=== PATIENT | female | born 2000 | race Caucasian/White ===

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

== ENCOUNTER 2018-05-02 13:29 | Emergency (ER) | payer OTHER ==
[2018-05-02] MEDS ORDERED: KETOROLAC TROMETHAMINE 60 MG/2 ML SDV IM ONE (13:57)
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
--- NOTE | 2018-05-02 14:50 | RADIOLOGY REPORT (SQ) ---
EXAM DESCRIPTION: KNEE RIGHT 3 VIEWS COMPLETED DATE/TIME: 05/02/2018 2:31 pm REASON FOR STUDY: knee pain COMPARISON: 12/04/2016. NUMBER OF VIEWS: Three views. TECHNIQUE: AP, lateral, and sunrise patella radiographic images acquired of the right knee. LIMITATIONS: None. FINDINGS: MINERALIZATION: Normal. BONES: No acute fracture or dislocation. No worrisome bone lesions. JOINT: No effusion. SOFT TISSUES: No soft tissue swelling. No radio-opaque foreign body. OTHER: No other significant finding. IMPRESSION: NEGATIVE STUDY OF THE RIGHT KNEE. NO RADIOGRAPHIC EVIDENCE OF ACUTE INJURY. TECHNICAL DOCUMENTATION: JOB ID: [id number] [employer]- All Rights Reserved Reading location - IP/workstation name: [email or web address]
[2018-05-02 16:15] VITALS: BP 101/57
== END 2018-05-02 16:10 | disposition home or self-care (01) ==
LOC: ER 13:29
DX: S80.01XA Contusion of right knee, initial encounter (principal); S90.01XA Contusion of right ankle, initial encounter; M25.561 Pain in right knee; M54.5 Low back pain; V49.50XA Passenger injured in collision with unspecified motor vehicles in traffic accident, initial encounter; F17.200 Nicotine dependence, unspecified, uncomplicated; J45.909 Unspecified asthma, uncomplicated; Z88.5 Allergy status to narcotic agent; Z88.8 Allergy status to other drugs, medicaments and biological substances; Z88.6 Allergy status to analgesic agent
CPT/HCPCS: 99284; 96372; 73562; J1885

== ENCOUNTER 2018-07-15 22:28 | Emergency (ER) | payer OTHER ==
[2018-07-15 23:30] VITALS: BP 114/64
--- NOTE | 2018-07-16 02:27 | ER Document Report ---
ED General - General Chief Complaint: Flu Symptoms Stated Complaint: NAUSEA, WEAKNESS Time Seen by Provider: 07/16/18 02:16 Notes: Patient is a 18-year-old female presents with complaints of nausea, weakness, fatigue, and some cramping over the lower abdomen. No abnormal discharge. No bleeding. Last menstrual period was in May. She got off control May. She is sexually active. They do not use protection. Patient has not checked a test. She denies any runny nose cough or congestion. She has vomited once. No other complaints at this time. She denies dysuria. TRAVEL OUTSIDE OF THE [place] IN LAST 30 DAYS: No - Related Data Allergies/Adverse Reactions: codeine [Codeine] Allergy (Severe, Verified 10/05/17 10:31) itching capsaicin Allergy (Verified 10/05/17 10:31) hydrocodone Allergy (Verified 10/05/17 10:31) lisdexamfetamine dimesylate [From Vyvanse] Allergy (Verified 10/05/17 10:31) Past Medical History - Social History Smoking Status: Unknown if Ever Smoked Frequency of alcohol use: None Drug Abuse: None Family History: Reviewed & Not Pertinent, Arthritis, Hypertension, Thyroid Disfunction Patient has suicidal ideation: No Patient has homicidal ideation: No Pulmonary Medical History: Reports: Hx Asthma Endocrine Medical History: Denies: Hx Diabetes Mellitus Type 1, Hx Diabetes Mellitus Type 2 Renal/ Medical History: Reports: Hx Ovarian Cysts. Denies: Hx Peritoneal Dialysis Musculoskeletal Medical History: Reports Hx Musculoskeletal Trauma Psychiatric Medical History: Reports: Hx Anxiety, Hx Attention Deficit Hyperactivity Disorder, Hx Bipolar Disorder, Hx Depression, Hx Post Traumatic Stress Disorder Past Surgical History: Reports: Hx Section, Hx Orthopedic Surgery - ganglion cyst removed right - Immunizations Immunizations up to date: Yes Hx Diphtheria, Pertussis, Tetanus Vaccination: Yes Review of Systems - Review of Systems Notes: My Normal Review Basic REVIEW OF SYSTEMS: CONSTITUTIONAL : Denies fever, chills, or sweats. Denies recent illness. EENT: Denies eye, ear, throat, or mouth pain or symptoms. Denies nasal or sinus congestion. RESPIRATORY: Denies cough, cold, or chest congestion. Denies shortness of breath, difficulty breathing, or wheezing. GASTROINTESTINAL: Lower abdominal cramping. vomiting X1. GENITOURINARY: Denies difficulty urinating, painful urination, burning, frequency, or blood in urine. FEMALE GENITOURINARY: Denies vaginal bleeding, abnormal or irregular periods. LMP: May MUSCULOSKELETAL: Denies neck or back pain or joint pain or swelling. SKIN: Denies rash or skin lesions. NEUROLOGICAL: Denies altered mental status or loss of consciousness. Denies headache. Denies weakness or paralysis or loss of use of either side. Denies problems with gait or speech. Denies sensory or motor loss. ALL OTHER SYSTEMS REVIEWED AND NEGATIVE. Physical Exam - Vital signs Vitals: Temp Pulse Resp BP Pulse Ox 98.4 F 90 16 114/64 98 07/15/18 23:29 07/15/18 23:29 07/15/18 23:29 07/15/18 23:29 07/15/18 23:29 - Notes Notes: General Appearance: Well nourished, alert, cooperative, no acute distress, no obvious discomfort. Well-appearing. Vitals: reviewed, See vital signs table. Eyes: PERRL, EOMI, Conjuctiva clear Mouth: No decreasd moisture Throat: Normal-appearing posterior pharynx. No tonsillar hypertrophy or erythema. Lungs: No wheezing, No rales, No rhonci, No accessory muscle use, good air exchange bilaterally. Heart: Normal rate, Regular rythm, No murmur, no rub Abdomen: Normal BS, soft, No rigidity, mild lower abdominal tenderness palpation., No guarding, no rebound, no abdominal masses, no organomegaly Skin: warm, dry, appropriate color, no rash Neuro: speech clear, oriented x 3, normal affect, responds appropriately to q uestions. Course - Re-evaluation Re-evalutation: 07/16/18 05:54 Patient's test was negative. I did call and leave her voicemail inform her that was negative. The exact cause of why the patient has abdominal cramping slight fatigue is not 100% clear. Patient is coming off control and this could be contributing to her cramping pain and that she may be about start her first menstrual post coming off the control. And voicemail informed to return to ER immediately if she has any worsening of her symptoms or feels unwell. I encouraged follow-up closely with her primary care doctor. Dictation of this chart was performed using voice recognition software; therefore, there may be some unintended grammatical errors. - Vital Signs Vital signs: Temp Pulse Resp BP Pulse Ox 98.4 F 90 16 114/64 98 07/15/18 23:29 07/15/18 23:29 07/15/18 23:29 07/15/18 23:29 07/15/18 23:29 Discharge - Discharge Clinical Impression: Nausea, Weakness Condition: Good Disposition: HOME, SELF-CARE Additional Instructions: I will call you with your test results. Please return to the ER if you have worsening pain, abnormal vaginal bleeding, intractable vomiting, or if you feel like you are worsening in any way. please follow up with a physician for revaluation in 2 days. Forms: Special Work Note
[2018-07-16 03:37] LABS: APPEARANCE,URINE SLIGHTLY-CLOUDY; BILIRUBIN,URINE NEGATIVE (NEGATIVE); COLOR,URINE YELLOW; GLUCOSE, URINE NEGATIVE (NEGATIVE); KETONES,URINE NEGATIVE (NEGATIVE); LEUKOCYTE ESTERASE,URINE NEGATIVE (NEGATIVE); NITRITE,URINE NEGATIVE (NEGATIVE); PROTEIN,URINE NEGATIVE (NEGATIVE); URINE SPECIFIC GRAVITY 1.018; UROBILINOGEN,URINE NEGATIVE mg/dL (<2.0)
== END 2018-07-16 04:42 | disposition home or self-care (01) ==
LOC: ER 22:28
DX: R11.2 Nausea with vomiting, unspecified (principal); R53.1 Weakness; R53.83 Other fatigue; R10.30 Lower abdominal pain, unspecified; Z88.5 Allergy status to narcotic agent; Z88.6 Allergy status to analgesic agent; Z88.8 Allergy status to other drugs, medicaments and biological substances; J45.909 Unspecified asthma, uncomplicated
CPT/HCPCS: 81001; 81025; 99283

== ENCOUNTER 2018-07-18 22:05 | Emergency (ER) | payer SELFPAY ==
--- NOTE | 2018-07-19 02:45 | ER Document Report ---
ED General - General Chief Complaint: Abdominal Pain Stated Complaint: POSSIBLE Time Seen by Provider: 07/19/18 02:04 Notes: Patient is a 18-year-old female who presents to the emergency department with a chief complaint of feeling as if she is . She states that she feels her normal symptoms of when she is . She has history of a negative test when she is 37 weeks . She states that her urine pre gnancy tests are never positive. She is sexually active and she had her Nexplanon removed a month and half ago. She does not remember when her last menstrual cycle was, but according to her medical record from her previous visit, her last menstrual cycle was in May. She is inquiring a blood test to confirm . She had a urinalysis done on her previous visit which was normal. TRAVEL OUTSIDE OF THE [place] IN LAST 30 DAYS: No - Related Data Allergies/Adverse Reactions: codeine [Codeine] Allergy (Severe, Verified 10/05/17 10:31) itching capsaicin Allergy (Verified 10/05/17 10:31) hydrocodone Allergy (Verified 10/05/17 10:31) lisdexamfetamine dimesylate [From Vyvanse] Allergy (Verified 10/05/17 10:31) Past Medical History - Social History Smoking Status: Current Every Day Smoker Chew tobacco use (# tins/day): No Frequency of alcohol use: None Drug Abuse: None Family History: Reviewed & Not Pertinent, Arthritis, Hypertension, Thyroid D isfunction Patient has suicidal ideation: No Patient has homicidal ideation: No Pulmonary Medical History: Reports: Hx Asthma Endocrine Medical History: Denies: Hx Diabetes Mellitus Type 1, Hx Diabetes Mellitus Type 2 Renal/ Medical History: Reports: Hx Ovarian Cysts. Denies: Hx Peritoneal Dialysis Musculoskeletal Medical History: Reports Hx Musculoskeletal Trauma Psychiatric Medical History: Reports: Hx Anxiety, Hx Attention Deficit Hyperactivity Disorder, Hx Bipolar Disorder, Hx Depression, Hx Post Traumatic Stress Disorder Past Surgical History: Reports: Hx Section, Hx Orthopedic Surgery - ganglion cyst removed right - Immunizations Immunizations up to date: Yes Hx Diphtheria, Pertussis, Tetanus Vaccination: Yes Review of Systems - Review of Systems Notes: REVIEW OF SYSTEMS: CONSTITUTIONAL : Denies recent illness. Denies recent unintentional weight loss. Denies fever, chills, or sweats. EENT: Denies eye, ear, throat, or mouth pain, discharge, or symptoms. Denies nasal or sinus congestion. CARDIOVASCULAR: Denies chest pain. RESPIRATORY: Denies shortness of breath, cough, congestion, difficulty breathing, or wheezing. GASTROINTESTINAL: See HPI GENITOURINARY: Denies difficulty urinating, burning, blood in urine, urgency or frequency. FEMALE GENITOURINARY: See HPI MUSCULOSKELETAL: Denies neck and back pain. Denies joint pain or swelling. SKIN: Denies rash, itchiness, or lesions HEMATOLOGIC : Denies easy bruising or bleeding. LYMPHATIC: Denies swollen, painful, enlarged glands. NEUROLOGICAL: Denies no numbness or tingling denies weakness. Denies headache. Denies altered mental status. Denies alteration in speech. PSYCHIATRIC: Denies stress, anxiety, alteration in sleep patterns, or depression. All other systems reviewed and negative. Physical Exam - Vital signs Vitals: Temp Pulse BP Pulse Ox 98.1 F 83 106/63 98 07/18/18 22:25 07/18/18 22:25 07/18/18 22:25 07/18/18 22:25 - Notes Notes: PHYSICAL EXAMINATION: GENERAL: Appears well, healthy, well-nourished, no acute distress. HEAD: Normocephalic, atraumatic. EYES: PERRL, conjunctiva normal, all extraocular movements intact, sclera nonicteric ENT: Moist mucous membranes. NECK: Supple, no noticeable swelling, redness, rash. Normal range of motion. LUNGS: Equal breath sounds bilaterally and clear to auscultation. No wheezes rales or rhonchi. CARDIOVASCULAR: S1-S2, regular rate, regular rhythm. Radial pulses 2+, normal. ABDOMEN: Normoactive bowel sounds. Soft, very mildly tender, no guarding, no r ebound tenderness, and no masses palpated. EXTREMITIES: Normal strength and range of motion, no pitting or edema. No cyanosis. NEUROLOGICAL: Moves all extremities upon command. Strength 5/5 in all extremities. PSYCH: Normal mood, normal affect. SKIN: Warm, dry. No rash, lesions, ulcerations noted. Normal skin turgor. Course - Re-evaluation Re-evalutation: The patient's serum and urine hCG are negative. I did not repeat a urinalysis because her urinalysis was normal at her previous visit here to the emergency department. I suspect that may be she is going to start her menstrual cycle within the next few days, and may be this is the reason why she is having her symptoms. I do not suspect she has any life-threatening etiologies at this time. Verbal discharge instructions were given to the patient. They verbalized understanding. They are stable for discharge. Documentation was completed using voice recognition software, therefore there may be some unintended grammatical errors. - Vital Signs Vital signs: Temp Pulse Resp BP Pulse Ox 97.9 F 106 H 19 117/62 98 07/19/18 04:07 07/19/18 04:07 07/19/18 04:07 07/19/18 04:07 07/19/18 04:07 Discharge - Discharge Clinical Impression: Abdominal cramping Condition: Stable Disposition: HOME, SELF-CARE Additional Instructions: You were seen in the emergency department today for abdominal cramping and concern for . At this time there is no explanation as to why you are having abdominal cramping. You may be starting your menstrual cycle in the next few days. Your blood tests show that you are not . If you develop worsening abdominal cramping, develop abdominal cramping, or have any symptoms that are worrisome to you, please return to the emergency department.
[2018-07-19 04:17] VITALS: BP 117/62
== END 2018-07-19 04:18 | disposition home or self-care (01) ==
LOC: ER 22:05
DX: R10.9 Unspecified abdominal pain (principal); Z32.02 Encounter for pregnancy test, result negative; F17.200 Nicotine dependence, unspecified, uncomplicated; J45.909 Unspecified asthma, uncomplicated; Z88.5 Allergy status to narcotic agent; Z88.6 Allergy status to analgesic agent
CPT/HCPCS: 36415; 81025; 84703; 99284

== ENCOUNTER 2018-08-13 22:08 | Emergency (ER) | payer SELFPAY ==
[2018-08-13 22:16] VITALS: BP 99/64
[2018-08-13 23:03] LABS: APPEARANCE,URINE TURBID; BILIRUBIN,URINE NEGATIVE (NEGATIVE); COLOR,URINE YELLOW; GLUCOSE, URINE NEGATIVE (NEGATIVE); KETONES,URINE NEGATIVE (NEGATIVE); LEUKOCYTE ESTERASE,URINE NEGATIVE (NEGATIVE); NITRITE,URINE NEGATIVE (NEGATIVE); PROTEIN,URINE NEGATIVE (NEGATIVE); URINE SPECIFIC GRAVITY 1.019
== END 2018-08-14 | disposition left against medical advice (07) ==
LOC: ER 22:08
DX: Z53.21 Procedure and treatment not carried out due to patient leaving prior to being seen by health care provider (principal)
CPT/HCPCS: 81001; 81025

== ENCOUNTER 2018-08-15 11:39 | Emergency (ER) | payer MEDICAID ==
[2018-08-15] MEDS ORDERED: ONDANSETRON HCL INJ/PF 4 MG/2 ML SDV IV ONE (12:44)
[2018-08-15] MEDS ORDERED: NORMAL SALINE 1000 ML 1,000 ML IV ONE ×2 (12:44→15:23)
[2018-08-15 13:07] LABS: HEMATOCRIT 44.6 % (36.0-47.0); HEMOGLOBIN 15.3 g/dL (12.0-15.5); MEAN CORPUSCULAR HEMOGLOBIN 30.1 pg (27.0-33.4); MEAN CORPUSCULAR HGB CONC 34.3 g/dL (32.0-36.0); MEAN CORPUSCULAR VOLUME 88 fl (80-97); PLATELET COUNT 274 10^3/uL (150-450); RED BLOOD COUNT 5.08 10^6/uL (3.72-5.28); RED CELL DISTRIBUTION WIDTH 12.7 % (11.5-14.0); WHITE BLOOD COUNT 13.7 10^3/uL (4.0-10.5)
[2018-08-15 13:20] LABS: BLOOD UREA NITROGEN 18 mg/dL (7-20); CALCIUM 8.7 mg/dL (8.4-10.2); GLUCOSE 96 mg/dL (75-110)
[2018-08-15 13:21] LABS: ALANINE AMINOTRANSFERASE 131 U/L (9-52); ALBUMIN 4.1 g/dL (3.5-5.0); ALKALINE PHOSPHATASE 233 U/L (38-126); ANION GAP 9 (5-19); ASPARTATE AMINO TRANSFERASE 87 U/L (14-36); BILIRUBIN,DIRECT 0.9 mg/dL (0.0-0.4); BILIRUBIN,TOTAL 1.1 mg/dL (0.2-1.3); CARBON DIOXIDE 27 mmol/L (22-30); CHLORIDE 98 mmol/L (98-107); POTASSIUM 3.9 mmol/L (3.6-5.0); SODIUM 133.5 mmol/L (137-145); TOTAL PROTEIN 6.7 g/dL (6.3-8.2)
[2018-08-15] MEDS ORDERED: KETOROLAC TROMETHAMINE INJ/PF 30 MG/1 ML SDV IV ONE (13:23)
[2018-08-15 13:58] LABS: ABSOLUTE LYMPHOCYTES# (MANUAL) 0.5 10^3/uL (0.5-4.7); ABSOLUTE NEUTROPHILS# (MANUAL) 13.2 10^3/uL (1.7-8.2); BASOPHILS % (MANUAL) 0 % (0-2); EOSINOPHILS % (MANUAL) 0 % (0-6); LYMPHOCYTES % (MANUAL) 4 % (13-45); MONOCYTES % (MANUAL) 0 % (3-13); SEGMENTED NEUTROPHILS % (MAN) 51 % (42-78); TOTAL CELLS COUNTED 100
[2018-08-15 14:01] LABS: PLATELET COMMENT ADEQUATE; POLYCHROMASIA SLIGHT
[2018-08-15 14:10] LABS: TOXIC VACUOLATION PRESENT
[2018-08-15] MEDS ORDERED: DEXTROSE 5%-LACTATED RINGERS 1,000 ML IV ONE (14:17)
[2018-08-15 15:11] LABS: APPEARANCE,URINE SLIGHTLY-CLOUDY; BILIRUBIN,URINE NEGATIVE (NEGATIVE); GLUCOSE, URINE NEGATIVE (NEGATIVE); KETONES,URINE 80 mg/dL (NEGATIVE); LEUKOCYTE ESTERASE,URINE NEGATIVE (NEGATIVE); NITRITE,URINE NEGATIVE (NEGATIVE); PROTEIN,URINE NEGATIVE (NEGATIVE); URINE SPECIFIC GRAVITY 1.025
[2018-08-15 15:14] LABS: COLOR,URINE YELLOW
[2018-08-15 15:18] LABS: URINE AMPHETAMINES SCREEN NEGATIVE; URINE BARBITURATES SCREEN NEGATIVE; URINE BENZODIAZEPINES SCREEN NEGATIVE; URINE COCAINE SCREEN NEGATIVE; URINE MARIJUANA (THC) SCREEN NEGATIVE; URINE METHADONE SCREEN NEGATIVE; URINE PHENCYCLIDINE SCREEN NEGATIVE
--- NOTE | 2018-08-15 16:22 | RADIOLOGY REPORT (SQ) ---
EXAM DESCRIPTION: CHEST SINGLE VIEW COMPLETED DATE/TIME: 08/15/2018 4:09 pm REASON FOR STUDY: Leukocytosis, fever, aches all over COMPARISON: 01/26/2016. EXAM PARAMETERS: NUMBER OF VIEWS: One view. TECHNIQUE: Single frontal radiographic view of the chest acquired. RADIATION DOSE: NA LIMITATIONS: None. FINDINGS: LUNGS AND PLEURA: No opacities, masses or pneumothorax. No pleural effusion. MEDIASTINUM AND HILAR STRUCTURES: No masses. Contour normal. HEART AND VASCULAR STRUCTURES: Heart normal in size. Normal vasculature. BONES: No acute findings. HARDWARE: None in the chest. OTHER: No other significant finding. IMPRESSION: NO ACUTE RADIOGRAPHIC FINDING IN THE CHEST. TECHNICAL DOCUMENTATION: JOB ID: [id number] [employer]- All Rights Reserved Reading location - IP/workstation name: [email or web address]
[2018-08-15] MEDS ORDERED: PROCHLORPERAZINE EDISYLATE INJ 10 MG/2 ML VIAL IV ONE (16:23)
[2018-08-15] MEDS ORDERED: DIPHENHYDRAMINE HCL 50 MG/ML VIAL IV ONE (16:23)
--- NOTE | 2018-08-15 18:29 | EKG REPORT ---
SEVERITY:- ABNORMAL ECG - SINUS TACHYCARDIA NONSPECIFIC T ABNORMALITIES, ANTERIOR LEADS : Confirmed by: Canelo Pereira MD 15-Aug-2018 18:27:44
--- NOTE | 2018-08-15 18:41 | ER Document Report ---
Doctor's Note Notes: 08/15/18 18:40 Patient received in sign out with pending lactic acid. Instructions were patient can be discharged if lactate is normal which it is 1.6. Patient discharged in stable condition.
[2018-08-15 19:06] VITALS: BP 95/48
[2018-08-16 09:38] LABS: HEPATITIS A AB IGM Negative (Negative); HEPATITIS B CORE AB IGM Negative (Negative); HEPATITS B SURFACE ANTIGEN Negative (Negative)
[2018-08-17 11:32] LABS: HEPATITIS C VIRUS ANTIBODY <0.1 s/co ratio (0.0-0.9)
[2018-08-18 09:53] LABS: BAND NEUTROPHILS % (MANUAL) 45 % (3-5)
[2018-08-18 15:47] LABS: PATH REVIEW PATHOLOGIST REVIEWED
--- NOTE | 2018-10-14 09:21 | ER Document Report ---
Entered by MELIZA LUCIO SCRIBE 08/15/18 1254 Acting as scribe for:BRUNO SALES MD ED General - General Chief Complaint: Abdominal Pain Stated Complaint: ABDOMINAL PAIN Time Seen by Provider: 08/15/18 12:35 Mode of Arrival: Ambulatory Information source: Patient Notes: Patient is a 18 year old female presenting to the emergency department complaining of multiple symptoms including nausea, vomiting, abdominal pain, light headedness, body aches and a headache. Patient states these symptoms were onset 3 days ago and she presented to the emergency department but LWBS. She reports being unable to hold down any foods, further stating she can only keep down cold water. She also states she is concerned for and would like to test for this. She denies cough or vaginal discharge. Patient reports not being able to take Tylenol since being told she had liver problems in September 2017. According to [facility] records, patient had elevated liver enzymes on October 05, 2017. Patient's enzymes were not elevated before then and her enzymes has not been checked since. Patient's LMP was July 03, 2018. She states she is sexually active but is no longer on control further stating she had her Nexplanon removed at the beginning of June 2018. TRAVEL OUTSIDE OF THE [place] IN LAST 30 DAYS: No - Related Data Allergies/Adverse Reactions: codeine [Codeine] Allergy (Severe, Verified 08/15/18 11:40) itching capsaicin Allergy (Verified 08/15/18 11:40) hydrocodone Allergy (Verified 08/15/18 11:40) lisdexamfetamine dimesylate [From Vyvanse] Allergy (Verified 08/15/18 11:40) Past Medical History - General Information source: Patient - Social History Smoking Status: Never Smoker Cigarette use (# per day): No Chew tobacco use (# tins/day): No Smoking Education Provided: No Frequency of alcohol use: None Family History: Reviewed & Not Pertinent, Arthritis, Hypertension, Thyroid Disfunction Pulmonary Medical History: Reports: Hx Asthma Renal/ Medical History: Reports: Hx Ovarian Cysts Musculoskeletal Medical History: Reports Hx Musculoskeletal Trauma Psychiatric Medical History: Reports: Hx Anxiety, Hx Attention Deficit Hyperactivity Disorder, Hx Bipolar Disorder, Hx Depression, Hx Post Traumatic Stress Disorder Past Surgical History: Reports: Hx Section, Hx Orthopedic Surgery - ganglion cyst removed right - Immunizations Immunizations up to date: Yes Hx Diphtheria, Pertussis, Tetanus Vaccination: Yes Review of Systems - Review of Systems Constitutional: No symptoms reported EENT: No symptoms reported Cardiovascular: See HPI, Lightheaded Respiratory: No symptoms reported Gastrointestinal: See HPI, Abdominal pain, Nausea, Vomiting Genitourinary: No symptoms reported Female Genitourinary: No symptoms reported Musculoskeletal: See HPI Skin: No symptoms reported Hematologic/Lymphatic: No symptoms reported Neurological/Psychological: No symptoms reported -: Yes All other systems reviewed and negative Physical Exam - Vital signs Vitals: Temp Pulse Resp BP Pulse Ox 100.2 F 174 H 16 112/50 L 99 08/15/18 12:17 08/15/18 12:17 08/15/18 12:17 08/15/18 12:17 08/15/18 12:17 - Notes Notes: GENERAL: Alert, mildly diaphoretic, interacts well. No acute distress. HEAD: Normocephalic, atraumatic. Scalp muscles are little tender to palpate. EYES: Pupils equal, round, and reactive to light. Extraocular movements intact. ENT: Oral mucosa moist, tongue midline. NECK: Full range of motion. Supple. Trachea midline. Posterior cervical muscles are tender to palpate. LUNGS: Clear to auscultation bilaterally, no wheezes, rales, or rhonchi. No respiratory distress. HEART: Tachycardic. No murmurs, gallops, or rubs. ABDOMEN: Soft, non-tender. Non-distended. Bowel sounds present in all 4 quadrants. EXTREMITIES: Moves all 4 extremities spontaneously. NEUROLOGICAL: Alert and oriented x3. Normal speech. PSYCH: Normal affect, normal mood. SKIN: Warm, mildly diaphoretic, normal turgor. No rashes or lesions noted. Course - Re-evaluation Re-evalutation: 08/15/18 16:24 Patient is feeling some better, she has urinated several times. She complains of headache all over. On exam she has tenderness to scalp and posterior cervical muscle palpation. There is no increase in headache or stiffness on chin to chest flexion. The abdomen remains soft and nontender. The WBC is 13,700 with 51 segs and 45 bands. She does not look toxic, her history and physical are all consistent with a viral syndrome. The chest x-ray is unremarkable, the urine is a little concentrated with 80 ketones after getting IV fluids. 08/15/18 17:26 The patient was sleeping soundly after getting the Benadryl and Compazine. She is awakened for reexam and states that her headache is much better. She does have IV fluids infusing. After the Benadryl and Compazine, her blood pressure has dropped down into the upper 70s systolic, while I am seeing her the machine recycled and her blood pressure was up into the mid 80s and climbing. I will order a lactic acid to help ensure that this is not a bacterial sepsis type problem. We will plan to discharge her home after this current liter of fluid infuses in the lactic acid result comes back. She is encouraged to continue to drink plenty fluids, get plenty of sleep and rest, take ibuprofen for pain as needed. She should follow-up with a primary care provider this week to review the results of her hepatitis profile testing. - Vital Signs Vital signs: Temp Pulse Resp BP Pulse Ox 98.6 F 174 H 14 95/48 L 100 08/15/18 19:08 08/15/18 12:17 08/15/18 19:01 08/15/18 19:01 08/15/18 19:01 - Laboratory Result Diagrams: 08/15/18 12:35 08/15/18 12:35 Laboratory results interpreted by me: 08/15/18 08/15/18 08/15/18 12:35 12:35 14:25 WBC 13.7 H Band Neutrophils % 45 H Lymphocytes % (Manual) 4 L Monocytes % (Manual) 0 L Abs Neuts (Manual) 13.2 H Abs Monocytes (Manual) 0.0 L Sodium 133.5 L Direct Bilirubin 0.9 H AST 87 H ALT 131 H Alkaline Phosphatase 233 H Urine Ketones 80 H Urine Urobilinogen 4.0 H - Diagnostic Test Radiology reviewed: Reports reviewed - Chest x-ray is unremarkable - Transfer of Care Care transferred to following provider: Dr. Montoya Notes: 08/15/18 17:41 Patient remains on monitor for the time being. She is receiving another full liter of IV fluids at this time. A serum lactic acid was ordered and will be reviewed by Dr. Montoya. At this time the plan is to discharge the patient when the additional IV fluids are in as long as the lactic acid does not come back very elevated. Discharge - Discharge Clinical Impression: Viral syndrome, Elevated liver enzymes, Tachycardia Headache Qualifiers: Headache type: unspecified Headache chronicity pattern: unspecified pattern Intractability: not intractable Qualified Code(s): R51 - Headache Hypotension Qualifiers: Hypotension type: unspecified hypotension type Qualified Code(s): I95.9 - Hypotension, unspecified Condition: Stable Disposition: HOME, SELF-CARE Additional Instructions: :Viral Syndrome The physician has diagnosed a viral infection. Viruses not only cause "colds," but can cause many different symptoms including generalized aching, fever, headache, cough, diarrhea, nausea, vomiting, and fatigue. The treatment, for the most part, is simply relief of symptoms. This means that antibiotics are usually not given. Rest, fluids, pain medications and, occasionally, medication for the specific symptoms that are most bothersome will be prescribed. Use good handwashing to avoid passing the virus to others. Shared toys should be cleaned with disinfectant. Clean the toilets, sinks, and counter surfaces in bathrooms. Launder clothing in hot water. Contact the physician if you develop any new or unusual symptoms such as severe headache, stiff neck, high fever, chest pain, productive cough, or shortness of breath. You should be rechecked if you don't see marked improvement within seven to 10 days. You most likely have a viral syndrome causing her symptoms. Your lab work suggests that you are little dehydrated. Your liver enzymes continue to be elevated slightly, not nearly as bad as they were in September of last year. A hepatitis panel was sent out and should be back sometime next week. For now you should drink plenty of fluids and get plenty of rest and sleep. Take ibuprofen for aches, pains, and headaches. Follow-up with a primary care provider next week for recheck and to check on your hepatitis profile panel. RETURN TO THE EMERGENCY ROOM IF ANY NEW OR WORSENING SYMPTOMS. Scribe Attestation: 08/15/18 14:23 I personally performed the services described in the documentation, reviewed and edited the documentation which was dictated to the scribe in my presence, and it accurately records my words and actions. I personally performed the services described in the documentation, reviewed and edited the documentation which was dictated to the scribe in my presence, and it accurately records my words and actions.
== END 2018-08-15 19:08 | disposition home or self-care (01) ==
LOC: ER 11:39
DX: B34.9 Viral infection, unspecified (principal); R74.8 Abnormal levels of other serum enzymes; R00.0 Tachycardia, unspecified; R51 Headache; I95.9 Hypotension, unspecified; R10.9 Unspecified abdominal pain; R11.2 Nausea with vomiting, unspecified; R42 Dizziness and giddiness; M79.10 Myalgia, unspecified site; J45.909 Unspecified asthma, uncomplicated
CPT/HCPCS: 93005; 99284; 36415; 87040; 84703; 85025; 80053; 81001; 80307; 83605; 80074; 71045; 93010; J1200; J1885; J0780; J2405; J7030

== ENCOUNTER 2018-10-02 22:54 | Emergency (ER) | payer OTHER ==
[2018-10-02 23:12] VITALS: BP 104/60
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
[2018-10-03] MEDS ORDERED: HYDROCODONE/ACETAMINOPHEN 5-325 MG TABLET PO ONE (01:05)
== END 2018-10-03 01:17 | disposition home or self-care (01) ==
LOC: ER 22:54
DX: O26.91 Pregnancy related conditions, unspecified, first trimester (principal); G89.29 Other chronic pain; M54.5 Low back pain; M25.552 Pain in left hip; M25.551 Pain in right hip; Z3A.01 Less than 8 weeks gestation of pregnancy; Z88.6 Allergy status to analgesic agent
CPT/HCPCS: 99283

== ENCOUNTER 2018-12-04 22:34 | Emergency (ER) | payer MEDICAID ==
[2018-12-05 00:07] VITALS: BP 101/53
== END 2018-12-05 01:28 | disposition left against medical advice (07) ==
LOC: ER 22:34
DX: Z53.21 Procedure and treatment not carried out due to patient leaving prior to being seen by health care provider (principal); R10.9 Unspecified abdominal pain; R53.1 Weakness

== ENCOUNTER 2018-12-15 00:04 | Emergency (ER) | payer SELFPAY ==
[2018-12-15 00:11] VITALS: BP 111/61
== END 2018-12-15 01:12 | disposition left against medical advice (07) ==
LOC: ER 00:04
DX: Z53.21 Procedure and treatment not carried out due to patient leaving prior to being seen by health care provider (principal)

== ENCOUNTER 2019-01-04 16:40 | Emergency (ER) | payer MEDICAID ==
[2019-01-04] MEDS ORDERED: NORMAL SALINE 1000 ML 1,000 ML IV ONE (17:00)
[2019-01-04] MEDS ORDERED: METOCLOPRAMIDE HCL INJ/PF 10 MG/2 ML SDV IV ONE (17:00)
--- NOTE | 2019-01-04 17:00 | ER Document Report ---
ED Medical Screen (RME) - General Chief Complaint: Abdominal Pain Stated Complaint: WEAKNESS Time Seen by Provider: 01/04/19 16:56 TRAVEL OUTSIDE OF THE [place] IN LAST 30 DAYS: No - HPI Notes: 01/04/19 16:58 Patient is a 19-year-old female is approximately 18 weeks who presents complaining of 'mild' left upper quadrant discomfort with associated nausea over the past couple days. Patient states that she has felt somewhat weak, dizzy, and dehydrated. Discomfort does not radiate. She is still able to eat and drink without difficulties otherwise. She is urinating normally and having normal bowel movements. She has not had any vaginal discharge, odor, or bleeding. Patient states that she had this with a previous and it was attributed to her dehydration. No other concerns or complaints. Denies MILLER, fever, neck pain, URI, CP, SOB, dysuria, back pain, or rash. I have treated and performed a rapid initial assessment of this patient. A comprehensive ED assessment and evaluation of the patient, analysis of test results and completion of medical decision making process will be conducted by additional ED providers. PHYSICAL EXAMINATION: GENERAL: Well-appearing, well-nourished and in no acute distress. A&Ox4. Answers questions appropriately. LUNGS: Breath sounds clear to auscultation bilaterally and equal. No wheezes rales or rhonchi. HEART: Regular rate and rhythm without murmurs, rubs, gallops. ABDOMEN: Soft, gravid abdomen. No guarding, no rebound. Normal bowel sounds present. No CVA tenderness bilaterally. + mild LUQ tenderness (cannot elicit thorough abd exam w/o bed, however). - Related Data Allergies/Adverse Reactions: codeine [Codeine] Allergy (Severe, Verified 01/04/19 16:48) itching capsaicin Allergy (Verified 01/04/19 16:48) hydrocodone Allergy (Verified 01/04/19 16:48) lisdexamfetamine dimesylate [From Vyvanse] Allergy (Verified 01/04/19 16:48) Past Medical History Pulmonary Medical History: Reports: Hx Asthma Endocrine Medical History: Denies: Hx Diabetes Mellitus Type 1, Hx Diabetes Mellitus Type 2 Renal/ Medical History: Reports: Hx Ovarian Cysts. Denies: Hx Peritoneal Dialysis Musculoskeltal Medical History: Reports Hx Musculoskeletal Trauma Psychiatric Medical History: Reports: Hx Anxiety, Hx Attention Deficit Hyperactivity Disorder, Hx Bipolar Disorder, Hx Depression, Hx Post Traumatic Stress Disorder Past Surgical History: Reports: Hx Section, Hx Orthopedic Surgery - ganglion cyst removed right - Immunizations Immunizations up to date: Yes Hx Diphtheria, Pertussis, Tetanus Vaccination: Yes Physical Exam - Vital signs Vitals: Temp Pulse Resp BP Pulse Ox 98.4 F 109 H 18 130/95 H 97 01/04/19 16:52 01/04/19 16:52 01/04/19 16:52 01/04/19 16:52 01/04/19 16:52 Course - Vital Signs Vital signs: Temp Pulse Resp BP Pulse Ox 98.4 F 109 H 18 130/95 H 97 01/04/19 16:52 01/04/19 16:52 01/04/19 16:52 01/04/19 16:52 01/04/19 16:52
[2019-01-04 18:06] LABS: ABSOLUTE EOSINOPHILS # (AUTO) 0.3 10^3/uL (0.0-0.6); ABSOLUTE LYMPHOCYTES (AUTO) 1.6 10^3/uL (0.5-4.7); ABSOLUTE MONOCYTES (AUTO) 0.7 10^3/uL (0.1-1.4); ABSOLUTE NEUT (AUTO) 9.9 10^3/uL (1.7-8.2); BASOPHILS % (AUTO) 0.4 % (0-2); HEMATOCRIT 37.1 % (36.0-47.0); HEMOGLOBIN 12.7 g/dL (12.0-15.5); LYMPHOCYTES % (AUTO) 12.5 % (13-45); MEAN CORPUSCULAR HEMOGLOBIN 30.6 pg (27.0-33.4); MEAN CORPUSCULAR HGB CONC 34.1 g/dL (32.0-36.0); MEAN CORPUSCULAR VOLUME 90 fl (80-97); MONOCYTES % (AUTO) 5.6 % (3-13); PLATELET COUNT 288 10^3/uL (150-450); RED BLOOD COUNT 4.14 10^6/uL (3.72-5.28); SEGMENTED NEUTROPHILS % (AUTO) 79.5 % (42-78); TOTAL CELLS COUNTED % (AUTO) 100 %; WHITE BLOOD COUNT 12.5 10^3/uL (4.0-10.5)
[2019-01-04 18:24] LABS: ALANINE AMINOTRANSFERASE 29 U/L (9-52); ALKALINE PHOSPHATASE 104 U/L (38-126); ANION GAP 6 (5-19); ASPARTATE AMINO TRANSFERASE 20 U/L (14-36); BILIRUBIN,DIRECT 0.2 mg/dL (0.0-0.4); BILIRUBIN,TOTAL 0.2 mg/dL (0.2-1.3); BLOOD UREA NITROGEN 9 mg/dL (7-20); CALCIUM 9.6 mg/dL (8.4-10.2); CARBON DIOXIDE 27 mmol/L (22-30); CHLORIDE 104 mmol/L (98-107); GLUCOSE 85 mg/dL (75-110); LIPASE 36.4 U/L (23-300); POTASSIUM 4.4 mmol/L (3.6-5.0); SODIUM 137.4 mmol/L (137-145)
[2019-01-04 19:11] LABS: AMORPHOUS SEDIMENT,URINE TRACE /HPF; APPEARANCE,URINE CLOUDY; BILIRUBIN,URINE NEGATIVE (NEGATIVE); COLOR,URINE YELLOW; GLUCOSE, URINE NEGATIVE (NEGATIVE); KETONES,URINE NEGATIVE (NEGATIVE); LEUKOCYTE ESTERASE,URINE MODERATE (NEGATIVE); NITRITE,URINE NEGATIVE (NEGATIVE); PROTEIN,URINE NEGATIVE (NEGATIVE); UROBILINOGEN,URINE NEGATIVE mg/dL (<2.0)
--- NOTE | 2019-01-04 23:18 | ER Document Report ---
ED General - General Chief Complaint: Abdominal Pain Stated Complaint: WEAKNESS Time Seen by Provider: 01/04/19 16:56 Notes: Patient is a 19-year-old female G2, P1 is approximately 18 weeks who presents complaining of intermittent generalized abdominal discomfort with associated nausea over the past couple days. Pain is a cramping, aching, intermittent discomfort. Nothing improves or worsens her discomfort. Patient states that she has felt somewhat weak, dizzy, and dehydrated. Discomfort does not radiate. She is still able to eat and drink without difficulties otherwise. She is urinating normally and having normal bowel movements. She has not had any vaginal discharge, odor, or bleeding. Patient states that she had this with a previous and it was attributed to her dehydration. No other concerns or complaints. Denies MILLER, fever, neck pain, URI, CP, SOB, dysuria, back pain, or rash. TRAVEL OUTSIDE OF THE [place] IN LAST 30 DAYS: No - Related Data Allergies/Adverse Reactions: codeine [Codeine] Allergy (Severe, Verified 01/04/19 16:48) itching capsaicin Allergy (Verified 01/04/19 16:48) hydrocodone Allergy (Verified 01/04/19 16:48) lisdexamfetamine dimesylate [From Vyvanse] Allergy (Verified 01/04/19 16:48) Past Medical History - General Information source: Patient - Social History Smoking Status: Never Smoker Chew tobacco use (# tins/day): No Frequency of alcohol use: None Drug Abuse: None Lives with: Spouse/Significant other Family History: Reviewed & Not Pertinent, Arthritis, Hypertension, Thyroid Disfunction Patient has suicidal ideation: No Patient has homicidal ideation: No Pulmonary Medical History: Reports: Hx Asthma Endocrine Medical History: Denies: Hx Diabetes Mellitus Type 1, Hx Diabetes Mellitus Type 2 Renal/ Medical History: Reports: Hx Ovarian Cysts. Denies: Hx Peritoneal Dialysis Musculoskeletal Medical History: Reports Hx Musculoskeletal Trauma Psychiatric Medical History: Reports: Hx Anxiety, Hx Attention Deficit Hyperactivity Disorder, Hx Bipolar Disorder, Hx Depression, Hx Post Traumatic Stress Disorder Past Surgical History: Reports: Hx Section, Hx Orthopedic Surgery - ganglion cyst removed right - Immunizations Immunizations up to date: Yes Hx Diphtheria, Pertussis, Tetanus Vaccination: Yes Review of Systems - Review of Systems Notes: Constitutional: Negative for fever. HENT: Negative for sore throat. Eyes: Negative for visual changes. Cardiovascular: Negative for chest pain. Respiratory: Negative for shortness of breath. Gastrointestinal: Positive abdominal pain, nausea Genitourinary: Negative for dysuria. Musculoskeletal: Negative for back pain. Skin: Negative for rash. Neurological: Negative for headaches, weakness or numbness. 10 point ROS negative except as marked above and in HPI. Physical Exam - Vital signs Vitals: Temp Pulse Resp BP Pulse Ox 98.4 F 109 H 18 130/95 H 97 01/04/19 16:52 01/04/19 16:52 01/04/19 16:52 01/04/19 16:52 01/04/19 16:52 Interpretation: Tachycardic - Resolved at the time of my assessment with a heart rate of 91 Notes: PHYSICAL EXAMINATION: GENERAL: Well-appearing, well-nourished and in no acute distress. HEAD: Atraumatic, normocephalic. EYES: Pupils equal round and reactive to light, extraocular movements intact, sclera anicteric, conjunctiva are normal. ENT: nares patent, oropharynx clear without exudates. Moist mucous membranes. NECK: Normal range of motion, supple without lymphadenopathy LUNGS: Breath sounds clear to auscultation bilaterally and equal. No wheezes rales or rhonchi. HEART: Regular rate and rhythm without murmurs ABDOMEN: Soft, gravid uterus, nontender, normoactive bowel sounds. No guarding, no rebound. No masses appreciated. EXTREMITIES: Normal range of motion, no pitting or edema. No cyanosis. NEUROLOGICAL: No focal neurological deficits. Moves all extremities spontaneou sly and on command. PSYCH: Normal mood, normal affect. SKIN: Warm, Dry, normal turgor, no rashes or lesions noted. Course - Re-evaluation Re-evalutation: 01/04/19 23:18 Patient is currently and presenting with lower abdominal pain. No vaginal bleeding or discharge. Bedside ultrasound shows a viable intrauterine , appropriate cardiac activity and active movement. Patient denies any dysuria and urinalysis is not consistent with an acute urinary tract infection. The patient does not have any focal right lower quadrant tenderness, rebound or guarding to suggest acute appendicitis. No right upper quadrant tenderness to suggest cholestasis of or an acute cholecystitis. Patient has tolerated oral intake here in the emergency department without difficulty. Vitals are within normal limits. At this time will discharge with return precautions and follow-up recommendations. Verbal discharge instructions given a the bedside and opportunity for questions given. Medication warnings reviewed. Patient is in agreement with this plan and has verbalized understanding of return precautions and the need for primary care follow-up in the next 24-72 hours. - Vital Signs Vital signs: Temp Pulse Resp BP Pulse Ox 98.4 F 109 H 18 130/95 H 97 01/04/19 16:52 01/04/19 16:52 01/04/19 16:52 01/04/19 16:52 01/04/19 16:52 - Laboratory Result Diagrams: 01/04/19 17:45 01/04/19 17:45 Laboratory results interpreted by me: 01/04/19 01/04/19 01/04/19 17:45 17:45 18:00 WBC 12.5 H Seg Neutrophils % 79.5 H Lymphocytes % 12.5 L Absolute Neutrophils 9.9 H Creatinine 0.43 L Ur Leukocyte Esterase MODERATE H Discharge - Discharge Clinical Impression: with generalized abdominal pain, antepartum, Dizziness Condition: Good Disposition: HOME, SELF-CARE Additional Instructions: You were seen for abdominal pain during . Your ultrasound and labs are normal today. The exact cause your pain is uncertain but is likely related to your developing baby. Please follow-up with your VENDING ATTENDANT in the next 24-48 hours. Return to the emergency department immediately if you have worsening of your pain, have persistent vomiting, develop a fever of greater than 100.4F, begin to have vaginal bleeding, or any other symptoms that are worrisome to you.
[2019-01-04 23:39] VITALS: BP 116/66
== END 2019-01-04 23:39 | disposition home or self-care (01) ==
LOC: ER 16:40
DX: O26.892 Other specified pregnancy related conditions, second trimester (principal); R10.84 Generalized abdominal pain; R42 Dizziness and giddiness; R10.9 Unspecified abdominal pain; R53.1 Weakness; O99.512 Diseases of the respiratory system complicating pregnancy, second trimester; J45.909 Unspecified asthma, uncomplicated; Z3A.18 18 weeks gestation of pregnancy
CPT/HCPCS: 99284; 36415; 83690; 85025; 80053; 81001; J2765; J7030

== ENCOUNTER 2019-01-26 21:03 | Outpatient (CLI) | payer MEDICAID ==
[2019-01-26 21:39] LABS: APPEARANCE,URINE SLIGHTLY-CLOUDY; BILIRUBIN,URINE NEGATIVE (NEGATIVE); COLOR,URINE YELLOW; GLUCOSE, URINE NEGATIVE (NEGATIVE); KETONES,URINE TRACE mg/dL (NEGATIVE); LEUKOCYTE ESTERASE,URINE MODERATE (NEGATIVE); NITRITE,URINE NEGATIVE (NEGATIVE); PROTEIN,URINE NEGATIVE (NEGATIVE); URINE SPECIFIC GRAVITY 1.019
[2019-01-26 21:53] LABS: URINE AMPHETAMINES SCREEN NEGATIVE; URINE BARBITURATES SCREEN NEGATIVE; URINE BENZODIAZEPINES SCREEN NEGATIVE; URINE COCAINE SCREEN NEGATIVE; URINE MARIJUANA (THC) SCREEN NEGATIVE; URINE METHADONE SCREEN NEGATIVE; URINE PHENCYCLIDINE SCREEN NEGATIVE
[2019-01-26] MEDS ORDERED: HYDROXYZINE PAMOATE 50 MG CAPSULE ONE (22:00)
[2019-01-26] MEDS ORDERED: HYDROXYZINE PAMOATE 50 MG CAPSULE PO ONE (22:30)
--- NOTE | 2019-01-26 22:43 | RADIOLOGY REPORT (SQ) ---
EXAM DESCRIPTION: US LIMITED COMPLETED DATE/TME: 01/26/2019 00:00 CLINICAL HISTORY: 19 years, Female, cervical length, maximal vertical pocket COMPARISON: None. TECHNIQUE: Axial 2-D grayscale images of the pelvis were performed. Doppler was utilized. LIMITATIONS: None. FINDINGS: Single intrauterine is identified. Measurements are as follows: Head circumference: 19.11 cm Biparietal diameter: 4.91 cm Abdominal circumference: 16.32 cm Femoral length: 3.62 cm heart rate: 152 bpm Estimated weight is 421 g (15 ounces) with an estimated gestational age of 21 weeks and two days. Largest vertical pocket of fluid is 5.18 cm Cervical length is 3.7 cm. Cervix appears closed. Placenta is posterior in location. IMPRESSION: Single viable intrauterine , as above described. Largest vertical pocket is 5.18 cm with a cervical length of 3.7 cm. copyright 2010 [employer]- All Rights Reserved
== END 2019-01-26 22:59 | disposition home or self-care (01) ==
LOC: LC 21:03
PROVIDERS: ATTEND Obstetrics & Gynecology
DX: O47.02 False labor before 37 completed weeks of gestation, second trimester (principal); Z3A.21 21 weeks gestation of pregnancy
CPT/HCPCS: 81001; 80307; 76815; J3490

== ENCOUNTER 2019-02-03 16:21 | Outpatient (CLI) | payer MEDICAID ==
[2019-02-03 17:29] LABS: APPEARANCE,URINE CLOUDY; BILIRUBIN,URINE NEGATIVE (NEGATIVE); COLOR,URINE YELLOW; GLUCOSE, URINE NEGATIVE (NEGATIVE); KETONES,URINE NEGATIVE (NEGATIVE); LEUKOCYTE ESTERASE,URINE TRACE (NEGATIVE); NITRITE,URINE NEGATIVE (NEGATIVE); PROTEIN,URINE NEGATIVE (NEGATIVE); URINE SPECIFIC GRAVITY 1.018; UROBILINOGEN,URINE NEGATIVE mg/dL (<2.0)
[2019-02-03 17:44] LABS: URINE AMPHETAMINES SCREEN NEGATIVE; URINE BARBITURATES SCREEN NEGATIVE; URINE BENZODIAZEPINES SCREEN NEGATIVE; URINE COCAINE SCREEN NEGATIVE; URINE MARIJUANA (THC) SCREEN NEGATIVE; URINE METHADONE SCREEN NEGATIVE; URINE PHENCYCLIDINE SCREEN NEGATIVE
== END 2019-02-03 17:40 | disposition home or self-care (01) ==
LOC: LC 16:21
PROVIDERS: ATTEND Obstetrics & Gynecology
PROC: 4A1HXCZ Monitoring of Products of Conception, Cardiac Rate, External Approach (ICD-10-PCS; principal; 2019-02-03)
DX: O26.892 Other specified pregnancy related conditions, second trimester (principal); R10.2 Pelvic and perineal pain; Z3A.22 22 weeks gestation of pregnancy
CPT/HCPCS: 80307; 81001

== ENCOUNTER 2019-02-06 20:31 | Emergency (ER) | payer MEDICAID ==
[2019-02-06 20:54] VITALS: BP 107/57
--- NOTE | 2019-02-06 22:08 | RADIOLOGY REPORT (SQ) ---
EXAM DESCRIPTION: XR ANKLE 3 OR MORE VIEWS COMPLETED DATE/TME: 02/06/2019 21:32 CLINICAL HISTORY: 19 years, Female, pain COMPARISON: None. NUMBER OF VIEWS: 3 TECHNIQUE: 3 view right ankle LIMITATIONS: None. FINDINGS: Negative for fracture or dislocation. Ankle mortise is intact. Soft tissues are unremarkable IMPRESSION: Negative exam copyright 2010 [employer]- All Rights Reserved
[2019-02-06] MEDS ORDERED: ACETAMINOPHEN 325 MG TABLET PO ONE (23:06)
--- NOTE | 2019-02-06 23:07 | ER Document Report ---
ED General - General Chief Complaint: Leg Pain Stated Complaint: RIGHT LEG AND ANKLE INJURY Time Seen by Provider: 02/06/19 22:52 Primary Care Provider: NAHOMI CAMARGO DO [Primary Care Provider] - Follow up in 3-5 days TRAVEL OUTSIDE OF THE [place] IN LAST 30 DAYS: No - HPI Notes: 19-year-old female to the emergency department with complaints of right ankle pain after she fell this evening. States she was going down a curb when her child "decided to play leapfrog". She states that to prevent him from falling she caught him and twisted her ankle. She states that her ankle went underneath her. She is 22 weeks . She denies hitting her stomach. She states that she is felt the baby move since the incident. She denies any pelvic cramping or abdominal pain. Denies any vaginal bleeding since the incident. States the ankle is painful to move and that it is even more painful to bear weight on. She has not taken anything for the pain since the incident. - Related Data Allergies/Adverse Reactions: codeine [Codeine] Allergy (Severe, Verified 02/03/19 17:50) itching capsaicin Allergy (Verified 02/03/19 17:50) hydrocodone Allergy (Verified 02/03/19 17:50) lisdexamfetamine dimesylate [From Vyvanse] Allergy (Verified 02/03/19 17:50) Past Medical History - General Information source: Patient - Social History Smoking Status: Never Smoker Frequency of alcohol use: None Drug Abuse: None Family History: Reviewed & Not Pertinent, Arthritis, Hypertension, Thyroid Disfunction Pulmonary Medical History: Reports: Hx Asthma Endocrine Medical History: Denies: Hx Diabetes Mellitus Type 1, Hx Diabetes Mellitus Type 2 Renal/ Medical History: Reports: Hx Ovarian Cysts. Denies: Hx Peritoneal Dialysis Musculoskeletal Medical History: Reports Hx Musculoskeletal Trauma Psychiatric Medical History: Reports: Hx Anxiety, Hx Attention Deficit Hyperactivity Disorder, Hx Bipolar Disorder, Hx Depression, Hx Post Traumatic Stress Disorder Past Surgical History: Reports: Hx Section, Hx Orthopedic Surgery - ganglion cyst removed right - Immunizations Immunizations up to date: Yes Hx Diphtheria, Pertussis, Tetanus Vaccination: Yes Review of Systems - Review of Systems Constitutional: denies: Chills, Fever EENT: No symptoms reported Cardiovascular: denies: Chest pain, Palpitations, Dyspnea, Syncope, Dizziness, Lightheaded Respiratory: denies: Cough, Short of breath Gastrointestinal: denies: Abdominal pain, Diarrhea, Nausea Genitourinary: denies: Frequency Musculoskeletal: Joint pain - Right ankle pain. denies: Back pain Skin: No symptoms reported Hematologic/Lymphatic: No symptoms reported Neurological/Psychological: No symptoms reported -: Yes All other systems reviewed and negative Physical Exam - Vital signs Vitals: Temp Pulse Resp BP Pulse Ox 97.8 F 100 20 107/57 L 97 02/06/19 20:51 02/06/19 20:51 02/06/19 20:51 02/06/19 20:51 02/06/19 20:51 Interpretation: Normal - General General appearance: Appears well, Alert - HEENT Head: Normocephalic, Atraumatic Eyes: Normal Pupils: PERRL - Respiratory Respiratory status: No respiratory distress Chest status: Nontender Breath sounds: Normal Chest palpation: Normal - Cardiovascular Rhythm: Regular Heart sounds: Normal auscultation Murmur: No - Abdominal Inspection: Gravid female - Fundus is above the umbilicus. heart rate is 147 by Doppler. Distension: No distension Bowel sounds: Normal Tenderness: Nontender Organomegaly: No organomegaly - Extremities Ankle: Tender, Edema. No: Ecchymosis - There is tenderness to palpation over the lateral aspect of the right ankle and to the anterior portion of the right ankle. Tenderness is mostly along the anterior talofibular ligament. There is mild edema. There is no ecchymosis or gross deformity. DP pulses are intact and equal. Cap refill is less than 2 sec throughout all toes. Dorsiflexion and plantar flexion are intact with 5 out of 5 strength against resistance. Patient does report that she has increased pain with dorsiflexion and plantarflexion. Foot: Normal, Nontender - Neurological Neuro grossly intact: Yes Cognition: Normal Orientation: AAOx4 Etienne Coma Scale Eye Opening: Spontaneous Etienne Coma Scale Verbal: Oriented Elizabeth Coma Scale Motor: Obeys Commands Elizabeth Coma Scale Total: 15 Speech: Normal Motor strength normal: LUE, RUE, LLE, RLE Sensory: Normal - Psychological Associated symptoms: Normal affect, Normal mood - Skin Skin Temperature: Warm Skin Moisture: Dry Skin Color: Normal Course - Re-evaluation Re-evalutation: 02/06/19 23:26 Ankle X-Ray 02/06/19 21:32 IMPRESSION: Negative exam copyright 2010 [employer]- All Rights Reserved Impression: Right ankle sprain, fall. FHR is reassuring and she did not strike her abdomen. Do not think she needs further monitoring for a point of view. Did vandana wrap the ankle myself -- she was neurovascularly intact prior to application and after. She was placed on crutches. Given Tylenol. Encouraged to perform RICE. Will have her follow with PCP. - Vital Signs Vital signs: Temp Pulse Resp BP Pulse Ox 97.8 F 100 20 107/57 L 97 02/06/19 20:51 02/06/19 20:51 02/06/19 20:51 02/06/19 20:51 02/06/19 20:51 - Diagnostic Test Radiology reviewed: Image reviewed, Reports reviewed Discharge - Discharge Clinical Impression: 22 weeks gestation of Right ankle sprain Qualifiers: Encounter type: initial encounter Involved ligament of ankle: other ligament Qualified Code(s): S93.491A - Sprain of other ligament of right ankle, initial encounter Fall Qualifiers: Encounter type: initial encounter Qualified Code(s): W19.XXXA - Unspecified fall, initial encounter Condition: Stable Disposition: HOME, SELF-CARE Instructions: Ice Packs ([facility]), Sprained Ankle ([facility]) Additional Instructions: YOU MAY TAKE TYLENOL FOR THE PAIN. REST, ICE, ELEVATE THE ANKLE. ICE FOR 20 MINUTES AT A TIME. 10 ANKLE PUMPS EVERY HOUR TO KEEP BLOOD CIRCULATING IN YOUR LEGS. FOLLOW UP WITH PRIMARY CARE IN 5 DAYS. Referrals: NAHOMI CAMARGO DO [Primary Care Provider] - Follow up in 3-5 days
== END 2019-02-06 23:23 | disposition home or self-care (01) ==
LOC: ER 20:31
DX: O9A.212 Injury, poisoning and certain other consequences of external causes complicating pregnancy, second trimester (principal); S93.491A Sprain of other ligament of right ankle, initial encounter; M25.571 Pain in right ankle and joints of right foot; W19.XXXA Unspecified fall, initial encounter; Z3A.22 22 weeks gestation of pregnancy; O99.512 Diseases of the respiratory system complicating pregnancy, second trimester; J45.909 Unspecified asthma, uncomplicated
CPT/HCPCS: 99283

== ENCOUNTER 2019-02-15 20:10 | Emergency (ER) | payer MEDICAID ==
[2019-02-15] MEDS ORDERED: NORMAL SALINE 1000 ML 1,000 ML IV ONE (22:15)
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
[2019-02-15 22:49] LABS: APPEARANCE,URINE SLIGHTLY-CLOUDY; BILIRUBIN,URINE NEGATIVE (NEGATIVE); COLOR,URINE YELLOW; GLUCOSE, URINE NEGATIVE (NEGATIVE); KETONES,URINE NEGATIVE (NEGATIVE); LEUKOCYTE ESTERASE,URINE SMALL (NEGATIVE); NITRITE,URINE NEGATIVE (NEGATIVE); PROTEIN,URINE 30 mg/dL (NEGATIVE); URINE SPECIFIC GRAVITY 1.015
[2019-02-15 22:53] LABS: ABSOLUTE EOSINOPHILS # (AUTO) 0.2 10^3/uL (0.0-0.6); ABSOLUTE LYMPHOCYTES (AUTO) 1.3 10^3/uL (0.5-4.7); ABSOLUTE NEUT (AUTO) 10.2 10^3/uL (1.7-8.2); BASOPHILS % (AUTO) 0.2 % (0-2); EOSINOPHILS % (AUTO) 1.6 % (0-6); HEMATOCRIT 30.8 % (36.0-47.0); HEMOGLOBIN 10.5 g/dL (12.0-15.5); LYMPHOCYTES % (AUTO) 10.1 % (13-45); MEAN CORPUSCULAR HEMOGLOBIN 31.2 pg (27.0-33.4); MEAN CORPUSCULAR HGB CONC 33.9 g/dL (32.0-36.0); MEAN CORPUSCULAR VOLUME 92 fl (80-97); MONOCYTES % (AUTO) 7.9 % (3-13); PLATELET COUNT 293 10^3/uL (150-450); RED BLOOD COUNT 3.35 10^6/uL (3.72-5.28); RED CELL DISTRIBUTION WIDTH 12.6 % (11.5-14.0); SEGMENTED NEUTROPHILS % (AUTO) 80.2 % (42-78); TOTAL CELLS COUNTED % (AUTO) 100 %; WHITE BLOOD COUNT 12.8 10^3/uL (4.0-10.5)
[2019-02-15 23:08] LABS: ALBUMIN 3.5 g/dL (3.5-5.0); ALKALINE PHOSPHATASE 144 U/L (38-126); ASPARTATE AMINO TRANSFERASE 46 U/L (14-36); BILIRUBIN,DIRECT 0.2 mg/dL (0.0-0.4); BILIRUBIN,TOTAL 0.2 mg/dL (0.2-1.3); BLOOD UREA NITROGEN 6 mg/dL (7-20); CALCIUM 8.9 mg/dL (8.4-10.2); GLUCOSE 92 mg/dL (75-110); POTASSIUM 4.5 mmol/L (3.6-5.0); TOTAL PROTEIN 6.4 g/dL (6.3-8.2)
[2019-02-15 23:13] LABS: CARBON DIOXIDE 27 mmol/L (22-30); CHLORIDE 103 mmol/L (98-107)
[2019-02-15 23:16] LABS: ANION GAP 7 (5-19)
[2019-02-16] MEDS ORDERED: ACETAMINOPHEN 325 MG TABLET PO ONE (00:19)
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
[2019-02-16 02:53] VITALS: BP 101/58
== END 2019-02-16 02:55 | disposition home or self-care (01) ==
LOC: ER 20:10
DX: O99.89 Other specified diseases and conditions complicating pregnancy, childbirth and the puerperium (principal); M54.6 Pain in thoracic spine; O99.512 Diseases of the respiratory system complicating pregnancy, second trimester; J45.909 Unspecified asthma, uncomplicated; Z3A.24 24 weeks gestation of pregnancy; Z88.5 Allergy status to narcotic agent; Z88.6 Allergy status to analgesic agent; Z88.8 Allergy status to other drugs, medicaments and biological substances; Z87.891 Personal history of nicotine dependence
CPT/HCPCS: 99283; 96360; 36415; 87086; 85025; 80053; 81001; J3490; J7030; 87088; 87186

== ENCOUNTER 2019-03-03 19:59 | Outpatient (CLI) | payer MEDICAID ==
[2019-03-03 20:55] LABS: APPEARANCE,URINE SLIGHTLY-CLOUDY; BILIRUBIN,URINE NEGATIVE (NEGATIVE); COLOR,URINE YELLOW; GLUCOSE, URINE NEGATIVE (NEGATIVE); KETONES,URINE NEGATIVE (NEGATIVE); LEUKOCYTE ESTERASE,URINE TRACE (NEGATIVE); NITRITE,URINE NEGATIVE (NEGATIVE); PROTEIN,URINE NEGATIVE (NEGATIVE); URINE SPECIFIC GRAVITY 1.019
[2019-03-03 21:18] LABS: URINE AMPHETAMINES SCREEN NEGATIVE; URINE BARBITURATES SCREEN NEGATIVE; URINE BENZODIAZEPINES SCREEN NEGATIVE; URINE COCAINE SCREEN NEGATIVE; URINE MARIJUANA (THC) SCREEN NEGATIVE; URINE METHADONE SCREEN NEGATIVE; URINE PHENCYCLIDINE SCREEN NEGATIVE
--- NOTE | 2019-03-03 21:54 | RADIOLOGY REPORT (SQ) ---
EXAM DESCRIPTION: [facility]: US LIMITED CLINICAL HISTORY: 19 years Female; cervical length TECHNIQUE: Transabdominal limited obstetrical ultrasound was performed. COMPARISON: 01/26/2019 FINDINGS: Number of fetuses: Single position: Vertex HR: 137 bpm Anatomy: survey not performed. Measurements were not obtained. Amniotic fluid: YULISA 12.5 cm, adequate Cervix: 2.1 cm, closed Placenta: Posterior IMPRESSION: 1. Single viable IUP. No acute findings. 2. Cervix 2.1 cm long, closed
== END 2019-03-03 22:50 | disposition home or self-care (01) ==
LOC: LC 19:59
PROVIDERS: ATTEND Obstetrics & Gynecology
DX: O47.02 False labor before 37 completed weeks of gestation, second trimester (principal); Z3A.26 26 weeks gestation of pregnancy
CPT/HCPCS: 76815; 80307; 81001

== ENCOUNTER 2019-03-22 01:33 | Outpatient (CLI) | payer MEDICAID ==
[2019-03-22 02:25] LABS: APPEARANCE,URINE CLOUDY; BILIRUBIN,URINE NEGATIVE (NEGATIVE); COLOR,URINE YELLOW; GLUCOSE, URINE NEGATIVE (NEGATIVE); KETONES,URINE NEGATIVE (NEGATIVE); LEUKOCYTE ESTERASE,URINE TRACE (NEGATIVE); NITRITE,URINE NEGATIVE (NEGATIVE); PROTEIN,URINE NEGATIVE (NEGATIVE); URINE SPECIFIC GRAVITY 1.013; UROBILINOGEN,URINE NEGATIVE mg/dL (<2.0)
[2019-03-22 02:38] LABS: URINE AMPHETAMINES SCREEN NEGATIVE; URINE BARBITURATES SCREEN NEGATIVE; URINE BENZODIAZEPINES SCREEN NEGATIVE; URINE COCAINE SCREEN NEGATIVE; URINE MARIJUANA (THC) SCREEN NEGATIVE; URINE METHADONE SCREEN NEGATIVE; URINE PHENCYCLIDINE SCREEN NEGATIVE
== END 2019-03-22 02:44 | disposition home or self-care (01) ==
LOC: LC 01:33
PROVIDERS: ATTEND Obstetrics & Gynecology
PROC: 4A1HXCZ Monitoring of Products of Conception, Cardiac Rate, External Approach (ICD-10-PCS; principal; 2019-03-22)
DX: O47.03 False labor before 37 completed weeks of gestation, third trimester (principal); Z3A.28 28 weeks gestation of pregnancy
CPT/HCPCS: 80307; 81001

== ENCOUNTER 2019-04-30 20:18 | Outpatient (CLI) | payer MEDICAID ==
[2019-04-30 21:29] LABS: APPEARANCE,URINE CLEAR; BILIRUBIN,URINE NEGATIVE (NEGATIVE); COLOR,URINE YELLOW; GLUCOSE, URINE NEGATIVE (NEGATIVE); KETONES,URINE NEGATIVE (NEGATIVE); LEUKOCYTE ESTERASE,URINE TRACE (NEGATIVE); NITRITE,URINE NEGATIVE (NEGATIVE); PROTEIN,URINE NEGATIVE (NEGATIVE); URINE SPECIFIC GRAVITY 1.012; UROBILINOGEN,URINE NEGATIVE mg/dL (<2.0)
[2019-04-30 21:37] LABS: URINE AMPHETAMINES SCREEN NEGATIVE; URINE BARBITURATES SCREEN NEGATIVE; URINE BENZODIAZEPINES SCREEN NEGATIVE; URINE COCAINE SCREEN NEGATIVE; URINE MARIJUANA (THC) SCREEN NEGATIVE; URINE METHADONE SCREEN NEGATIVE; URINE PHENCYCLIDINE SCREEN NEGATIVE
--- NOTE | 2019-04-30 21:45 | Non Stress Test Report ---
Non Stress Test Datetime Report Generated by CPN: 04/30/2019 21:45 DEMOGRAPHIC EGA NST: 34.4 INDICATION Indication for Study (NST) Other: Contractions MONITORING Monitor Explained: Monitor Explained; Test Explained; Patient Verbalized Understanding Time on Monitor: 04/30/2019 20:32 Time off Monitor: 04/30/2019 21:40 NST Duration: 68 NST INTERVENTIONS NST Interventions: None; PO Hydration Physician Notified NST: C Montague MD BABY A: [id number] BABY A Movement : Present Contraction Frequency : 0, irritibility R Baseline : 135 Accelerations : 15X15 Decelerations : None Variability : Moderate 6-25bpm NST Review: Meets Criteria for Reactive NST NST Review and Verified By : NAOMI Cardenas NST Results: Reactive NST REPORT Report Trigger: Send Report
== END 2019-04-30 21:47 | disposition home or self-care (01) ==
LOC: LC 20:18
PROVIDERS: ATTEND Obstetrics & Gynecology Gynecology
PROC: 4A1HXCZ Monitoring of Products of Conception, Cardiac Rate, External Approach (ICD-10-PCS; principal; 2019-04-30)
DX: O47.03 False labor before 37 completed weeks of gestation, third trimester (principal); Z3A.34 34 weeks gestation of pregnancy
CPT/HCPCS: 80307; 81001; 84112

== ENCOUNTER 2019-05-06 20:26 | Outpatient (CLI) | payer MEDICAID ==
[2019-05-06 21:20] LABS: APPEARANCE,URINE SLIGHTLY-CLOUDY; BILIRUBIN,URINE NEGATIVE (NEGATIVE); COLOR,URINE YELLOW; GLUCOSE, URINE NEGATIVE (NEGATIVE); KETONES,URINE NEGATIVE (NEGATIVE); LEUKOCYTE ESTERASE,URINE TRACE (NEGATIVE); NITRITE,URINE NEGATIVE (NEGATIVE); PROTEIN,URINE NEGATIVE (NEGATIVE); URINE SPECIFIC GRAVITY 1.012; UROBILINOGEN,URINE NEGATIVE mg/dL (<2.0)
--- NOTE | 2019-05-06 21:31 | Non Stress Test Report ---
Non Stress Test Datetime Report Generated by CPN: 05/06/2019 21:31 DEMOGRAPHIC EGA NST: 35.3 INDICATION Indication for Study: Other - Please document "Reason for NST Other" in box below. Indication for Study (NST) Other: lc MONITORING Monitor Explained: Monitor Explained; Test Explained; Patient Verbalized Understanding Time on Monitor: 05/06/2019 20:45 Time off Monitor: 05/06/2019 21:26 NST Duration: 41 NST INTERVENTIONS NST Interventions: PO Hydration; Reposition Patient Physician Notified NST: Bragg BABY A: [id number] Movement : Present Contraction Frequency : 0 FHR Baseline : 125 Accelerations : 15X15 Decelerations : None Variability : Moderate 6-25bpm NST Review: Meets Criteria for Reactive NST NST Review and Verified By : Nilam Madrigal RN NST Results: Reactive NST REPORT Report Trigger: Send Report
[2019-05-06 21:44] LABS: URINE AMPHETAMINES SCREEN NEGATIVE; URINE BARBITURATES SCREEN NEGATIVE; URINE BENZODIAZEPINES SCREEN NEGATIVE; URINE COCAINE SCREEN NEGATIVE; URINE MARIJUANA (THC) SCREEN NEGATIVE; URINE METHADONE SCREEN NEGATIVE; URINE PHENCYCLIDINE SCREEN NEGATIVE
== END 2019-05-06 22:06 | disposition home or self-care (01) ==
LOC: LC 20:26
PROVIDERS: ATTEND Obstetrics & Gynecology
PROC: 4A1HXCZ Monitoring of Products of Conception, Cardiac Rate, External Approach (ICD-10-PCS; principal; 2019-05-06)
DX: Z36.89 Encounter for other specified antenatal screening (principal)
CPT/HCPCS: 59025; 80307; 81001; 84112

== ENCOUNTER 2019-05-20 22:08 | Outpatient (CLI) | payer MEDICAID ==
[2019-05-20 23:18] LABS: APPEARANCE,URINE CLEAR; BILIRUBIN,URINE NEGATIVE (NEGATIVE); COLOR,URINE STRAW; GLUCOSE, URINE NEGATIVE (NEGATIVE); KETONES,URINE NEGATIVE (NEGATIVE); LEUKOCYTE ESTERASE,URINE NEGATIVE (NEGATIVE); NITRITE,URINE NEGATIVE (NEGATIVE); PROTEIN,URINE NEGATIVE (NEGATIVE); URINE SPECIFIC GRAVITY 1.004; UROBILINOGEN,URINE NEGATIVE mg/dL (<2.0)
[2019-05-20 23:37] LABS: URINE AMPHETAMINES SCREEN NEGATIVE; URINE BARBITURATES SCREEN NEGATIVE; URINE BENZODIAZEPINES SCREEN NEGATIVE; URINE COCAINE SCREEN NEGATIVE; URINE MARIJUANA (THC) SCREEN NEGATIVE; URINE METHADONE SCREEN NEGATIVE; URINE PHENCYCLIDINE SCREEN NEGATIVE
--- NOTE | 2019-05-20 23:51 | Non Stress Test Report ---
Non Stress Test Datetime Report Generated by CPN: 05/20/2019 23:51 DEMOGRAPHIC EGA NST: 37.3 INDICATION Indication for Study: Decreased Movement MONITORING Monitor Explained: Monitor Explained; Test Explained; Patient Verbalized Understanding Time on Monitor: 05/20/2019 22:30 Time off Monitor: 05/20/2019 23:40 NST Duration: 70 NST INTERVENTIONS NST Interventions: PO Hydration; Reposition Patient Physician Notified NST: Dr Fischer BABY A: [id number] BABY A Movement : Present Contraction Frequency : rare FHR Baseline : 120 Accelerations : 15X15 Decelerations : None Variability : Moderate 6-25bpm NST Review: Meets Criteria for Reactive NST NST Review and Verified By : NAOMI Shelby Results: Reactive NST REPORT Report Trigger: Send Report
== END 2019-05-20 23:53 | disposition home or self-care (01) ==
LOC: LC 22:08
PROVIDERS: ATTEND Student in an Organized Health Care Education/Training Program
PROC: 4A1HXCZ Monitoring of Products of Conception, Cardiac Rate, External Approach (ICD-10-PCS; principal; 2019-05-20)
DX: O36.8130 Decreased fetal movements, third trimester, not applicable or unspecified (principal); Z3A.37 37 weeks gestation of pregnancy
CPT/HCPCS: 59025; 80307; 81005

== ENCOUNTER 2019-05-31 02:26 | Outpatient (CLI) | payer MEDICAID ==
[2019-05-31 03:05] LABS: APPEARANCE,URINE SLIGHTLY-CLOUDY; BILIRUBIN,URINE NEGATIVE (NEGATIVE); COLOR,URINE STRAW; GLUCOSE, URINE NEGATIVE (NEGATIVE); KETONES,URINE NEGATIVE (NEGATIVE); LEUKOCYTE ESTERASE,URINE NEGATIVE (NEGATIVE); NITRITE,URINE NEGATIVE (NEGATIVE); PROTEIN,URINE NEGATIVE (NEGATIVE); URINE SPECIFIC GRAVITY 1.005; UROBILINOGEN,URINE NEGATIVE mg/dL (<2.0)
[2019-05-31 03:23] LABS: URINE AMPHETAMINES SCREEN NEGATIVE; URINE BARBITURATES SCREEN NEGATIVE; URINE BENZODIAZEPINES SCREEN NEGATIVE; URINE COCAINE SCREEN NEGATIVE; URINE MARIJUANA (THC) SCREEN NEGATIVE; URINE METHADONE SCREEN NEGATIVE; URINE PHENCYCLIDINE SCREEN NEGATIVE
[2019-05-31] MEDS ORDERED: RINGERS SOLUTION,LACTATED 1,000 ML IV ONE (05:00)
--- NOTE | 2019-05-31 05:24 | Non Stress Test Report ---
Non Stress Test Datetime Report Generated by CPN: 05/31/2019 05:23 DEMOGRAPHIC EGA NST: 39.0 INDICATION Indication for Study (NST) Other: labor check MONITORING Monitor Explained: Monitor Explained; Test Explained; Patient Verbalized Understanding Time on Monitor: 05/31/2019 02:40 Time off Monitor: 05/31/2019 04:56 NST Duration: 136 NST INTERVENTIONS NST Interventions: PO Hydration; IV Fluids Physician Notified NST: Dr Younger BABY A: [id number] BABY A Movement : Present Contraction Frequency : none FHR Baseline : 120 Accelerations : 15X15 Decelerations : None Variability : Moderate 6-25bpm NST Review: Meets Criteria for Reactive NST NST Review and Verified By : Deisy Rivas RN NST Results: Reactive NST REPORT Report Trigger: Send Report
== END 2019-05-31 05:15 | disposition home or self-care (01) ==
LOC: LC 02:26
PROVIDERS: ATTEND Obstetrics & Gynecology
PROC: 4A1HXCZ Monitoring of Products of Conception, Cardiac Rate, External Approach (ICD-10-PCS; principal; 2019-05-31)
DX: O26.893 Other specified pregnancy related conditions, third trimester (principal); R10.9 Unspecified abdominal pain; M54.9 Dorsalgia, unspecified; Z3A.39 39 weeks gestation of pregnancy
CPT/HCPCS: 59025; 80307; 81005

== ENCOUNTER 2019-06-01 05:20 | Inpatient (IN) | payer MEDICAID ==
[2019-05-29 12:07] LABS: ABSOLUTE EOSINOPHILS # (AUTO) 0.1 10^3/uL (0.0-0.6); ABSOLUTE LYMPHOCYTES (AUTO) 1.3 10^3/uL (0.5-4.7); ABSOLUTE MONOCYTES (AUTO) 0.6 10^3/uL (0.1-1.4); BASOPHILS % (AUTO) 0.5 % (0-2); EOSINOPHILS % (AUTO) 1.2 % (0-6); HEMATOCRIT 29.4 % (36.0-47.0); HEMOGLOBIN 9.7 g/dL (12.0-15.5); LYMPHOCYTES % (AUTO) 16.6 % (13-45); MEAN CORPUSCULAR VOLUME 82 fl (80-97); MONOCYTES % (AUTO) 7.2 % (3-13); PLATELET COUNT 262 10^3/uL (150-450); RED BLOOD COUNT 3.59 10^6/uL (3.72-5.28); RED CELL DISTRIBUTION WIDTH 14.6 % (11.5-14.0); SEGMENTED NEUTROPHILS % (AUTO) 74.5 % (42-78); TOTAL CELLS COUNTED % (AUTO) 100 %
[2019-05-29 12:26] LABS: APPEARANCE,URINE SLIGHTLY-CLOUDY; BILIRUBIN,URINE NEGATIVE (NEGATIVE); COLOR,URINE YELLOW; GLUCOSE, URINE NEGATIVE (NEGATIVE); KETONES,URINE NEGATIVE (NEGATIVE); LEUKOCYTE ESTERASE,URINE TRACE (NEGATIVE); NITRITE,URINE NEGATIVE (NEGATIVE); PROTEIN,URINE NEGATIVE (NEGATIVE); URINE SPECIFIC GRAVITY 1.016; UROBILINOGEN,URINE NEGATIVE mg/dL (<2.0)
[2019-05-29 12:42] LABS: URINE AMPHETAMINES SCREEN NEGATIVE; URINE BARBITURATES SCREEN NEGATIVE; URINE COCAINE SCREEN NEGATIVE; URINE MARIJUANA (THC) SCREEN NEGATIVE; URINE METHADONE SCREEN NEGATIVE; URINE PHENCYCLIDINE SCREEN NEGATIVE
[2019-05-29 12:43] LABS: URINE BENZODIAZEPINES SCREEN NEGATIVE
[~2019-06-01 05:20] MED LIST: CEFAZOLIN SODIUM 2 GM in DEXTROSE 5%-WATER 100 ML IV PRN; LACTATED RINGERS 1000 ML IV PRN
[2019-06-01] MEDS ORDERED: CEFTRIAXONE 1 GM/D5W RTU 1 GM/50 ML RTUPB IV ONE (06:55)
[2019-06-01] MEDS ORDERED: KETAMINE HCL INJ 500 MG/10 ML VIAL ONE (06:59)
[2019-06-01] MEDS ORDERED: FENTANYL CITRATE INJ/PF 100 MCG/2 ML AMPUL ONE (07:30)
[2019-06-01] MEDS ORDERED: ONDANSETRON HCL INJ/PF 4 MG/2 ML SDV ONE ×2 (07:30→15:11)
[2019-06-01] MEDS ORDERED: DIPHENHYDRAMINE HCL 50 MG/ML VIAL ONE (07:30)
[2019-06-01] MEDS ORDERED: OXYTOCIN/NORMAL SALINE 20 UNIT/1,000 ML RTUINJ ONE (07:30)
[2019-06-01] MEDS ORDERED: MIDAZOLAM 2 MG/2 ML INJ ONE (07:30)
[2019-06-01] MEDS ORDERED: OXYTOCIN 10 UNIT/ML VIAL ONE (07:30)
[2019-06-01] MEDS ORDERED: ACETAMINOPHEN 1,000 MG/100 ML RTUPB IV ONE (07:30)
[2019-06-01] MEDS ORDERED: PROPOFOL INJ 200 MG/20 ML VIAL IV ONE (07:30)
[2019-06-01] MEDS ORDERED: CEFAZOLIN INJ 1 GM VIAL ONE (07:46)
[2019-06-01] MEDS ORDERED: DIPHENHYDRAMINE HCL 50 MG/ML VIAL IV PRN (08:21)
[2019-06-01] MEDS ORDERED: MEPERIDINE HCL/PF INJ 25 MG/1 ML DISP.SYRIN IV PRN (08:21)
[2019-06-01] MEDS ORDERED: FENTANYL CITRATE INJ/PF 100 MCG/2 ML AMPUL IV PRN ×3 (08:21)
[2019-06-01] MEDS ORDERED: MORPHINE SULFATE 10 MG/ML INJ IV PRN (08:21)
[2019-06-01] MEDS ORDERED: ONDANSETRON HCL INJ/PF 4 MG/2 ML SDV IV PRN (08:21)
--- NOTE | 2019-06-01 09:08 | PDOC DELIVERY SUMMARY ---
Delivery Summary - Maternal Hx : II Hx Para: I Hx # Term Pregnancies: 1 Hx Total # of Abortions (Sponateous & Elective): 0 Number of Living Children: 1 HOOD: 06/07/19 Gestational Age: 39.1 Risk Factors: Previous Ruptured Membranes: AROM Time of Rupture: 08:15 Fluids: Clear - Delivery Labor: Not In Labor Presentation: Vertex Heart Rate Monitoring: Done Pre-Operatively Uterine Contraction Monitoring: External Support Person Present: Yes Location: OR : Scheduled, Repeat Placenta: Within Normal Limits Placenta Description: Normal-appearing Number of Vessels (Cord): 3 Nuchal Cord: No Delivery of Placenta Date: 06/01/19 Delivery of Placenta Time: 08:19 Delivery Quantitative Blood Loss (QBL): 400 - Medications Type of Anesthesia:: Spinal - Assess and Care Baby 1 Female Delivery of Date: 06/01/19 Delivery of Time: 08:17 at 1 minute: 8 at 5 minutes: 9 Preprinted Number On Band: [id number] Skin to Skin: Yes Skin to Skin (Mins): 5 To Nursery At: 08:29 Mode of Transport: Bassinet Infant Delivery Weight: 39.3 Infant Delivery Length: 21 in - Delivery Personnel Nursery RN: NADER ALANIZ RN Nursery RN: YOUSUF MARTINEZ RN: LAURA DE LA PAZ MD: NAHOMI CAMARGO
[2019-06-01] MEDS ORDERED: DIPH/PERTUSS(ACELL)/TETANUS VAC/PF 0.5 ML SYR (>=10YO) IM PRN (09:14)
[2019-06-01] MEDS ORDERED: OXYTOCIN/NORMAL SALINE 1,000 ML IV PRN (09:14)
[2019-06-01] MEDS ORDERED: HYDROMORPHONE HCL INJ/PF 2 MG/ML AMPULE IV PRN (09:14)
[2019-06-01] MEDS ORDERED: SIMETHICONE 80 MG TAB.CHEW PO PRN (09:14)
[2019-06-01] MEDS ORDERED: ACETAMINOPHEN 1,000 MG/100 ML RTUPB IV PRN (09:14)
--- NOTE | 2019-06-01 09:14 | Operative Report ---
Operative Report DATE OF SURGERY: 06/01/19 PREOPERATIVE DIAGNOSIS: 1. Intrauterine at 39-1/7 weeks. 2. Previo us section x1. 3. GBS positive. 4. Anemia. 5. Rubella immune. 6. Asthma. 7. Rh+ POSTOPERATIVE DIAGNOSIS: Same plus peritonealuterine adhesions OPERATION: Repeat section SURGEON: NAHOMI GALARZA ANESTHESIA: Spinal TISSUE REMOVED OR ALTERED: Placenta COMPLICATIONS: None QUANTITATIVE BLOOD LOSS: 400 INTRAOPERATIVE FINDINGS: Female infant in a cephalic position; vacuum-assisted cephalic delivery; Apgars 8 at 1, 9 at 5 with weight of 8 pounds 11 ounces; normal uterus, bilateral tubes and ovaries; uterineperitoneal adhesions PROCEDURE: The patient was taken to the operating room where spinal anesthesia was obtained and found to be adequate. She was then prepped and draped in the normal sterile fashion and placed in the dorsal supine position with a leftward tilt. A Pfannenstiel skin incision was then made, using her previous incision as a guide, and carried through to the underlying layers of the fascia with the scalpel. The fascia was incised in the midline and the incision extended laterally with the Bianchi scissors. The superior aspect of the fascial incision was then grasped with Jazmyne clamps elevated and the underlying rectus muscles dissected off both bluntly and sharply. Attention was then turned to the inferior aspect of the fascial incision which in a similar fashion was grasped, tented up with Jazmyne clamps, and the rectus muscles dissected off both bluntly and sharply. The rectus muscles were then in the midline and the peritoneum was identified and entered both sharply and bluntly. The peritoneal incision was then extended superiorly and inferiorly with good visualization of the bladder. The bladder blade was inserted and the vesicouterine peritoneum identified grasped with Belgian pickups and entered sharply with the Metzenbaum scissors. This incision was then extended laterally with the Metzenbaum scissors and a bladder flap created digitally. The bladder blade was then r einserted and the lower uterine segment incised in a transverse fashion with the scalpel. The uterine incision was then extended bluntly and with the bandage scissors. The bladder blade was removed and the infant's head was delivered from cephalic presentation atraumatically, with the assistance of a vacuum. There were 2 pop offs and it was not replaced a third time. The cord doubly clamped and cut. The was handed off to waiting founder chairman and chief creative officer. The placenta was then delivered manually. The uterus could not be exteriorized, initially. They were too dense uterineperitoneal adhesions that needed to be released prior to exteriorizing the uterus. The uterus was then cleared of all clots and debris. The uterine incision was then repaired with 0 Vicryl in a running locked fashion. 0-Chromic was used to obtain hemostasis via imbrication of the initial layer. The bladder flap was then repaired with 3-0 Vicryl in a running fashion. The uterus was returned to the patient's abdomen and Interceed was placed overlying the uterine incision, as well as a piece placed vertically on the anterior surface of the uterus, to prevent adhesions. The gutters were cleared of all clots and debris. There was brisk bleeding at the top of the peritoneum in which 3-0 Vicryl was used in a running locked fashion to gain hemostasis. The peritoneum was then closed in a running fashion with 2-0 Vicryl. All operative sites were noted to be hemostatic. The fascia was reapproximated with 0 Vicryl in a running fashion from each lateral edge to the midline. The subcutaneous fat layer was then closed in an interrupted fashion with 3-0 vicryl. The skin was closed with 4-0 Monocryl in a running, subcuticular fashion. The patient tolerated the procedure well. Sponge, lap, needle and instrument counts are correct x 2. 2 g of Ancef were given prior to skin incision. The patient was taken to the recovery area awake and in stable condition.
[2019-06-01] MEDS ORDERED: ACETAMINOPHEN WITH CODEINE #3 TABLET PO PRN (09:22)
[2019-06-01] MEDS ORDERED: OXYTOCIN/NORMAL SALINE 20 UNIT/1,000 ML RTUINJ IV PRN (09:22)
[2019-06-01] MEDS: RINGERS SOLUTION,LACTATED 1,000 ML IV PRN ×2 (09:48→22:46)
[2019-06-01] MEDS: DOCUSATE SODIUM 100 MG CAPSULE PO SCH ×2 (12:08→18:56)
[2019-06-01] MEDS: PRENATAL VITAMIN W DHA CAPSULE PO SCH (12:09)
[2019-06-01] MEDS: PROMETHAZINE HCL INJ 25 MG/1 ML VIAL IV PRN ×2 (13:00→22:46)
[2019-06-01] MEDS ORDERED: KETOROLAC TROMETHAMINE INJ/PF 30 MG/1 ML SDV IV SCH (14:00)
[2019-06-01] MEDS: IBUPROFEN 800 MG TABLET PO SCH ×2 (14:00→17:45)
[2019-06-01] MEDS ORDERED: KETOROLAC TROMETHAMINE 60 MG/2 ML SDV ONE (15:11)
[2019-06-01] MEDS ORDERED: GLYCOPYRROLATE 1 MG/5 ML VIAL ONE (15:11)
[2019-06-01] MEDS ORDERED: PHENYLEPHRINE HCL INJ/PF 10 MG/1 ML SDV ONE (15:11)
[2019-06-01] MEDS ORDERED: OXYCODONE-ACETAMINOPHEN 5-325 MG TABLET PO PRN (17:52)
[2019-06-01] MEDS: OXYCODONE-ACETAMINOPHEN 5-325 MG TABLET PO PRN ×2 (18:05→22:47)
[2019-06-01] MEDS ORDERED: RINGERS SOLUTION,LACTATED 500 ML IV ONE (21:15)
[2019-06-02] MEDS ORDERED: KETOROLAC TROMETHAMINE INJ/PF 30 MG/1 ML SDV IV SCH (02:00)
[2019-06-02] MEDS: OXYCODONE-ACETAMINOPHEN 5-325 MG TABLET PO PRN ×3 (04:30→13:02)
[2019-06-02] MEDS: RINGERS SOLUTION,LACTATED 1,000 ML IV PRN (04:32)
[2019-06-02 06:15] LABS: HEMOGLOBIN 8.9 g/dL (12.0-15.5); MEAN CORPUSCULAR HEMOGLOBIN 26.8 pg (27.0-33.4); MEAN CORPUSCULAR HGB CONC 33.1 g/dL (32.0-36.0); MEAN CORPUSCULAR VOLUME 81 fl (80-97); PLATELET COUNT 220 10^3/uL (150-450); RED BLOOD COUNT 3.33 10^6/uL (3.72-5.28); RED CELL DISTRIBUTION WIDTH 14.7 % (11.5-14.0); WHITE BLOOD COUNT 10.3 10^3/uL (4.0-10.5)
[2019-06-02] MEDS ORDERED: IRON SUCROSE COMPLEX INJ/PF 100 MG/5 ML SDV IV ONE (09:00)
[2019-06-02] MEDS: DOCUSATE SODIUM 100 MG CAPSULE PO SCH ×2 (10:03→17:06)
[2019-06-02] MEDS: PRENATAL VITAMIN W DHA CAPSULE PO SCH (10:03)
[2019-06-02] MEDS: IBUPROFEN 800 MG TABLET PO PRN ×2 (14:12→22:31)
--- NOTE | 2019-06-02 15:10 | PDOC PROGRESS REPORT ---
Subjective-OB Progress Note for:: 06/02/19 Subjective: reports bleeding slowing, pain controlled with current meds, denies needs, +passing gas Physical Exam (OB) Vital Signs: Temp Pulse Resp BP Pulse Ox 97.8 F 80 22 H 117/70 98 06/02/19 12:06 06/02/19 12:06 06/02/19 12:06 06/02/19 12:06 06/02/19 12:06 Intake & Output 06/01/19 06/02/19 06/03/19 06:59 06:59 06:59 Intake Total 2861 Output Total 1150 Balance 1711 - Dressing Removed: No - opsite without drainage Incision: Dressing - Lochia Lochia Amount: Small 10-25 ml Lochia Color: Rubra/Red - Abdomen Description: Soft, Round Hernia Present: No Fundal Description: Firm, Midline Fundal Height: u/u - u/2 - Abdominal Distension: No distension - Extremities Lower extremities: Gera's sign - neg Calf: Normal, Nontender Objective-Diagnostic Laboratory: 06/02/19 06:05 06/02/19 06:05 WBC 10.3 RBC 3.33 L Hgb 8.9 L Hct 27.0 L MCV 81 MCH 26.8 L MCHC 33.1 RDW 14.7 H Plt Count 220 Assessment and Plan(PN) - Time Spent with Patient Time with patient: Less than 15 minutes Medications reviewed and adjusted accordingly: Yes - Disposition Anticipated Discharge: Home Within: within 24 hours
[2019-06-03] MEDS: OXYCODONE-ACETAMINOPHEN 5-325 MG TABLET PO PRN (00:39)
[2019-06-03] MEDS: IBUPROFEN 800 MG TABLET PO PRN (06:45)
[2019-06-03 08:29] VITALS: BP 121/83
[2019-06-03] MEDS: DOCUSATE SODIUM 100 MG CAPSULE PO SCH (10:06)
[2019-06-03] MEDS: PRENATAL VITAMIN W DHA CAPSULE PO SCH (10:06)
--- NOTE | 2019-06-03 11:18 | PDOC DISCHARGE SUMMARY ---
Impression - Admit/DC Date/PCP Admission Date/Primary Care Provider: 06/01/19 05:20 LEVY HERNANDEZ Discharge Date: 06/03/19 - Discharge Diagnosis (1) Vacuum-assisted delivery, delivered, current hospitalization Is this a current diagnosis for this admission?: Yes (2) Anemia complicating , third trimester Is this a current diagnosis for this admission?: Yes (3) Status post repeat low transverse section Is this a current diagnosis for this admission?: Yes - Additional Information Resuscitation Status: Full Code Discharge Diet: As Tolerated, Regular Discharge Activity: Activity As Tolerated, Balance Activity w/Rest, No Driving, No Lifting Over 10 Pounds, Pelvic Rest, No tub bath, Walk Frequently Referrals: LAM CARR FNP-BC [Primary Care Provider] - Prescriptions: Oxycodone HCl/Acetaminophen [Percocet 5-325 mg Tablet] 2 tab PO Q4HP PRN #20 tablet PRN Reason: For Pain Scale 3-5 Ibuprofen [Motrin 800 mg Tablet] 800 mg PO Q8HP PRN #20 tablet PRN Reason: Abdominal Cramping Docusate Sodium [Colace 100 mg Capsule] 100 mg PO BID #60 capsule Ferrous Sulfate [Feosol 325 mg Tablet] 325 mg PO BID #60 tablet Home Medications: No122/Iron/Folic Acid [ Multi Tablet] 1 tab PO DAILY 01/24/17 Albuterol Sulfate [Proair Digihaler] 2 puff IH Q4HP PRN 05/29/19 Hydroxyzine Pamoate [Vistaril] 25 mg PO HSP PRN 05/29/19 Docusate Sodium [Colace 100 mg Capsule] 100 mg PO BID #60 capsule 06/03/19 Ferrous Sulfate [Feosol 325 mg Tablet] 325 mg PO BID #60 tablet 06/03/19 Ibuprofen [Motrin 800 mg Tablet] 800 mg PO Q8HP PRN #20 tablet 06/03/19 Oxycodone HCl/Acetaminophen [Percocet 5-325 mg Tablet] 2 tab PO Q4HP PRN #20 tablet 06/03/19 Results Laboratory Results: WBC 10.3 10^3/uL (4.0-10.5) 06/02/19 06:05 RBC 3.33 10^6/uL (3.72-5.28) L 06/02/19 06:05 Hgb 8.9 g/dL (12.0-15.5) L 06/02/19 06:05 Hct 27.0 % (36.0-47.0) L 06/02/19 06:05 MCV 81 fl (80-97) 06/02/19 06:05 MCH 26.8 pg (27.0-33.4) L 06/02/19 06:05 MCHC 33.1 g/dL (32.0-36.0) 06/02/19 06:05 RDW 14.7 % (11.5-14.0) H 06/02/19 06:05 Plt Count 220 10^3/uL (150-450) 06/02/19 06:05 Lymph % (Auto) 16.6 % (13-45) 05/29/19 10:54 [place] % (Auto) 7.2 % (3-13) 05/29/19 10:54 Eos % (Auto) 1.2 % (0-6) 05/29/19 10:54 Baso % (Auto) 0.5 % (0-2) 05/29/19 10:54 Absolute Neuts (auto) 6.0 10^3/uL (1.7-8.2) 05/29/19 10:54 Absolute Lymphs (auto) 1.3 10^3/uL (0.5-4.7) 05/29/19 10:54 Absolute Monos (auto) 0.6 10^3/uL (0.1-1.4) 05/29/19 10:54 Absolute Eos (auto) 0.1 10^3/uL (0.0-0.6) 05/29/19 10:54 Absolute Basos (auto) 0.0 10^3/uL (0.0-0.2) 05/29/19 10:54 Seg Neutrophils % 74.5 % (42-78) 05/29/19 10:54 Urine Color YELLOW 05/29/19 11:37 Urine Appearance SLIGHTLY-CLOUDY 05/29/19 11:37 Urine pH 6.0 (5.0-9.0) 05/29/19 11:37 Ur Specific Bishop 1.016 05/29/19 11:37 Urine Protein NEGATIVE mg/dL (NEGATIVE) 05/29/19 11:37 Urine Glucose (UA) NEGATIVE mg/dL (NEGATIVE) 05/29/19 11:37 Urine Ketones NEGATIVE mg/dL (NEGATIVE) 05/29/19 11:37 Urine Blood NEGATIVE (NEGATIVE) 05/29/19 11:37 Urine Nitrite NEGATIVE (NEGATIVE) 05/29/19 11:37 Urine Bilirubin NEGATIVE (NEGATIVE) 05/29/19 11:37 Urine Urobilinogen NEGATIVE mg/dL (<2.0) 05/29/19 11:37 Ur Leukocyte Esterase TRACE (NEGATIVE) H 05/29/19 11:37 Urine WBC (Auto) 10 /HPF 05/29/19 11:37 Urine RBC (Auto) 3 /HPF 05/29/19 11:37 Urine Bacteria (Auto) TRACE /HPF 05/29/19 11:37 Squamous Epi Cells Auto 11 /HPF 05/29/19 11:37 Urine Mucus (Auto) OCC /LPF 05/29/19 11:37 Urine Ascorbic Acid NEGATIVE (NEGATIVE) 05/29/19 11:37 Urine Opiates Screen NEGATIVE 05/29/19 11:37 Urine Methadone Screen NEGATIVE 05/29/19 11:37 Ur Barbiturates Screen NEGATIVE 05/29/19 11:37 Ur Phencyclidine Scrn NEGATIVE 05/29/19 11:37 Ur Amphetamines Screen NEGATIVE 05/29/19 11:37 U Benzodiazepines Scrn NEGATIVE 05/29/19 11:37 Urine Cocaine Screen NEGATIVE 05/29/19 11:37 U Marijuana (THC) Screen NEGATIVE 05/29/19 11:37 Blood Type O POSITIVE 05/31/19 14:09 Antibody Screen NEGATIVE 05/31/19 14:09
== END 2019-06-03 12:30 | disposition home or self-care (01) | DRG 788 ==
LOC: 2S 05:20
PROVIDERS: ADMIT Obstetrics & Gynecology; ATTEND Obstetrics & Gynecology
PROC: 10D00Z1 Extraction of Products of Conception, Low, Open Approach (ICD-10-PCS; principal; 2019-06-01 07:45)
DX: O34.211 Maternal care for low transverse scar from previous cesarean delivery (principal); O99.824 Streptococcus B carrier state complicating childbirth; O99.52 Diseases of the respiratory system complicating childbirth; O99.89 Other specified diseases and conditions complicating pregnancy, childbirth and the puerperium; N73.6 Female pelvic peritoneal adhesions (postinfective); J45.909 Unspecified asthma, uncomplicated; O99.02 Anemia complicating childbirth; D64.9 Anemia, unspecified; O99.334 Smoking (tobacco) complicating childbirth; F17.210 Nicotine dependence, cigarettes, uncomplicated; Z3A.39 39 weeks gestation of pregnancy; Z37.0 Single live birth; Z88.6 Allergy status to analgesic agent; Z28.21 Immunization not carried out because of patient refusal
CPT/HCPCS: 1961; 36415; 59025; 80307; 81001; 85025; 85027; 86850; 86900; 86901; 94799; C1765; J0131; J0690; J1170; J1200; J1756; J1885; J2250; J2370; J2405; J2550; J2590; J2704; J3010; J3490; J7060; J7120

== ENCOUNTER 2020-07-20 18:40 | Emergency (ER) | payer MEDICAID ==
--- NOTE | 2020-07-20 21:37 | ER Document Report ---
ED Medical Screen (RME) - General Chief Complaint: Abdominal Pain Stated Complaint: ABDOMINAL PAIN Time Seen by Provider: 07/20/20 21:24 Mode of Arrival: Ambulatory Information source: Patient TRAVEL OUTSIDE OF THE [place] IN LAST 30 DAYS: No - HPI Patient complains to provider of: [place] Notes: 07/20/20 21:32 Patient here with complaints of lower abdominal pain. She states that pain for the last few days. She denies any nausea, vomiting, diarrhea. No dysuria or hematuria. She denies any vaginal bleeding or vaginal discharge. She states that she has implanted control. She states that her last normal menstrual cycle was at the beginning of June. She states that with her previous pregnancies her urine test were never positive only blood tests were positive. She is concerned she may be . She had prior , denies any other abdominal surgeries. Exam: No distress, nontoxic appearing. Lungs clear throughout. Heart sounds normal. Tenderness across the lower abdomen on limited triage abdominal exam. No CVA tenderness. An initial examination was made on the patient as part of the triage process, and it was determined a more comprehensive evaluation was necessary. Initial orders were placed and patient was transferred to another provider in the ED who assumed care and finished evaluation and plan. - Related Data Allergies/Adverse Reactions: codeine [Codeine] Allergy (Severe, Verified 05/29/19 11:04) itching capsaicin Allergy (Verified 05/29/19 11:04) hydrocodone Allergy (Verified 05/29/19 11:04) lisdexamfetamine dimesylate [From Vyvanse] Allergy (Verified 05/29/19 11:04) Home Medications: metformin Past Medical History - Past Medical History Cardiac Medical History: Denies: Hx Pulmonary Embolism Pulmonary Medical History: Reports: Hx Asthma Denies: Hx Sleep Apnea, Hx Tuberculosis Endocrine Medical History: Denies: Hx Diabetes Mellitus Type 1, Hx Diabetes Mellitus Type 2 Renal/ Medical History: Reports: Hx Ovarian Cysts. Denies: Hx Peritoneal Dialysis GI Medical History: Reports: Hx Gastroesophageal Reflux Disease - DURING . Denies: Hx Hiatal Hernia, Hx Ulcer Musculoskeltal Medical History: Reports Hx Musculoskeletal Trauma Psychiatric Medical History: Reports: Hx Anxiety, Hx Attention Deficit Hyperactivity Disorder, Hx Bipolar Disorder, Hx Depression, Hx Post Traumatic Stress Disorder Past Surgical History: Reports: Hx Section, Hx Orthopedic Surgery - ganglion cyst removed right - Immunizations Immunizations up to date: Yes Hx Diphtheria, Pertussis, Tetanus Vaccination: Yes Physical Exam - Vital signs Vitals: Temp Pulse Resp BP Pulse Ox 98.0 F 91 16 102/63 99 07/20/20 18:52 07/20/20 18:52 07/20/20 18:52 07/20/20 18:52 07/20/20 18:52 Course - Vital Signs Vital signs: Temp Pulse Resp BP Pulse Ox 98.0 F 91 16 102/63 99 07/20/20 18:52 07/20/20 18:52 07/20/20 18:52 07/20/20 18:52 07/20/20 18:52
[2020-07-20 22:44] LABS: ABSOLUTE EOSINOPHILS # (AUTO) 0.1 10^3/uL (0.0-0.6); ABSOLUTE LYMPHOCYTES (AUTO) 2.2 10^3/uL (0.5-4.7); ABSOLUTE MONOCYTES (AUTO) 0.4 10^3/uL (0.1-1.4); ABSOLUTE NEUT (AUTO) 2.8 10^3/uL (1.7-8.2); BASOPHILS % (AUTO) 0.5 % (0-2); EOSINOPHILS % (AUTO) 2.4 % (0-6); HEMATOCRIT 40.2 % (36.0-47.0); HEMOGLOBIN 13.5 g/dL (12.0-15.5); LYMPHOCYTES % (AUTO) 39.8 % (13-45); MEAN CORPUSCULAR HEMOGLOBIN 29.3 pg (27.0-33.4); MEAN CORPUSCULAR HGB CONC 33.7 g/dL (32.0-36.0); MEAN CORPUSCULAR VOLUME 87 fl (80-97); MONOCYTES % (AUTO) 6.6 % (3-13); PLATELET COUNT 295 10^3/uL (150-450); RED BLOOD COUNT 4.62 10^6/uL (3.72-5.28); RED CELL DISTRIBUTION WIDTH 12.5 % (11.5-14.0); SEGMENTED NEUTROPHILS % (AUTO) 50.7 % (42-78); TOTAL CELLS COUNTED % (AUTO) 100 %; WHITE BLOOD COUNT 5.5 10^3/uL (4.0-10.5)
[2020-07-20 23:06] LABS: ALBUMIN 4.3 g/dL (3.5-5.0); ALKALINE PHOSPHATASE 98 U/L (38-126); ANION GAP 7 (5-19); ASPARTATE AMINO TRANSFERASE 27 U/L (14-36); BILIRUBIN,DIRECT 0.2 mg/dL (0.0-0.4); BILIRUBIN,TOTAL 0.2 mg/dL (0.2-1.3); BLOOD UREA NITROGEN 11 mg/dL (7-20); CALCIUM 9.5 mg/dL (8.4-10.2); CARBON DIOXIDE 29 mmol/L (22-30); CHLORIDE 102 mmol/L (98-107); GLUCOSE 104 mg/dL (75-110); POTASSIUM 4.5 mmol/L (3.6-5.0); TOTAL PROTEIN 7.2 g/dL (6.3-8.2)
--- NOTE | 2020-07-21 02:02 | ER Document Report ---
ED General - General Chief Complaint: Pelvic Pain Stated Complaint: ABDOMINAL PAIN Time Seen by Provider: 07/20/20 21:24 Mode of Arrival: Ambulatory TRAVEL OUTSIDE OF THE [place] IN LAST 30 DAYS: No - HPI Notes: Patient is a 20-year-old female with a past medical history of diabetes who presents with abdominal pain. Patient states that she began to have lower abdominal cramping about 2 days ago. She has also had some nausea and vomiting. No diarrhea. She denies any urinary symptoms. No vaginal discharge or vaginal bleeding. She denies any concern for STDs. Eating makes the pain worse. She has not tried any medications to make it better. She has had no chest pain or shortness of breath. No headaches. Patient states she last had these symptoms when she was . She states that urine test do not work for her. Patient has a history of 2 C-sections. No other abdominal surgeries. - Related Data Allergies/Adverse Reactions: codeine [Codeine] Allergy (Severe, Verified 05/29/19 11:04) itching capsaicin Allergy (Verified 05/29/19 11:04) hydrocodone Allergy (Verified 05/29/19 11:04) lisdexamfetamine dimesylate [From Vyvanse] Allergy (Verified 05/29/19 11:04) Home Medications: metformin Past Medical History - General Information source: Patient - Social History Smoking Status: Current Every Day Smoker Family History: Reviewed & Not Pertinent, Arthritis, Hypertension, Thyroid Disfunction - Past Medical History Cardiac Medical History: Denies: Hx Pulmonary Embolism Pulmonary Medical History: Reports: Hx Asthma Denies: Hx Sleep Apnea, Hx Tuberculosis Endocrine Medical History: Denies: Hx Diabetes Mellitus Type 1, Hx Diabetes Mellitus Type 2 Renal/ Medical History: Reports: Hx Ovarian Cysts. Denies: Hx Peritoneal Dialysis GI Medical History: Reports: Hx Gastroesophageal Reflux Disease - DURING . Denies: Hx Hiatal Hernia, Hx Ulcer Musculoskeletal Medical History: Reports Hx Musculoskeletal Trauma Psychiatric Medical History: Reports: Hx Anxiety, Hx Attention Deficit Hyperactivity Disorder, Hx Bipolar Disorder, Hx Depression, Hx Post Traumatic Stress Disorder Past Surgical History: Reports: Hx Section, Hx Orthopedic Surgery - ganglion cyst removed right - Immunizations Immunizations up to date: Yes Hx Diphtheria, Pertussis, Tetanus Vaccination: Yes Review of Systems - Review of Systems Notes: CONSTITUTIONAL: No fever, fatigue or weight loss. SKIN: No rash. HENT: No congestion, ear pain, or sore throat. CARDIOVASCULAR: No chest pain or edema. RESPIRATORY: No cough, shortness of breath, congestion, or wheezing. GASTROINTESTINAL: Positive for lower abdominal cramping, nausea, vomiting. No diarrhea. GENITOURINARY: No dysuria. No vaginal bleeding or discharge. MUSCULOSKELETAL: No joint pain or swelling. LYMPHATIC: No swollen glands. NEUROLOGIC: No seizures. No headache, focal weakness or sensory changes. HEMATOLOGIC: No unusual bruising or bleeding. PSYCHIATRIC: No depression or anxiety. Physical Exam - Vital signs Vitals: Temp Pulse Resp BP Pulse Ox 98.0 F 91 16 102/63 99 07/20/20 18:52 07/20/20 18:52 07/20/20 18:52 07/20/20 18:52 07/20/20 18:52 - General General appearance: Appears well In distress: None Notes: VITAL SIGNS: Within normal limits. GENERAL: No acute distress, non-toxic appearance. HEAD: Normal with no signs of head trauma. EYES: Conjunctiva normal, no discharge. EARS: Hearing grossly intact. NECK: Normal range of motion, no tenderness, supple, no lymphadenopathy, No adenopathy, no JVD. CHEST: Clear breath sounds bilaterally. No wheezes, rales, or rhonchi. CARDIAC: Regular rate and rhythm. VASCULAR: No Edema. ABDOMEN: Normal and soft with no tenderness, no masses or pulsatile masses. MUSCULOSKELETAL: Good range of motion of all major joints. Extremities without clubbing, cyanosis or edema. NEUROLOGICAL: Alert and oriented x 3. No focal sensory or strength deficits. Speech normal. Follows commands appropriately. PSYCHIATRIC: Normal Affect, judgement and mood. SKIN: Normal appearance with no rashes or lesions. Course - Re-evaluation Re-evalutation: 07/21/20 02:06 Patient's lab work is unremarkable. I informed her that her test was negative. I did offer her a CT scan as I am unsure the etiology of her symptoms. Patient declined. She states she is not having any abdominal pain on my exam. Abdominal exam is is benign. I offered her nausea medicine but she also declined. Patient states she just wants to be discharged. I did tell her that we need to obtain a urine sample but she declined this as well. She states she has no urinary symptoms. I educated patient on staying hydrated. She was given strict return precautions. - Vital Signs Vital signs: Temp Pulse Resp BP Pulse Ox 97.6 F 82 16 108/64 100 07/21/20 02:13 07/21/20 02:13 07/21/20 02:13 07/21/20 02:13 07/21/20 02:13 - Laboratory Results Result Diagrams: 07/20/20 22:29 07/20/20 22:29 Critical Laboratory Results Reviewed: No Critical Results - Radiology Results Critical Radiology Results Reviewed: No Critical Results Discharge - Discharge Clinical Impression: Abdominal pain Qualifiers: Abdominal location: lower abdomen, unspecified Qualified Code(s): R10.30 - Lower abdominal pain, unspecified Condition: Stable Disposition: HOME, SELF-CARE Instructions: Abdominal Pain ([facility]) Additional Instructions: Your work-up today is reassuring. Please make sure you are staying hydrated. Please return to the ER for any return of symptoms. Follow-up with your family doctor.
[2020-07-21 02:18] VITALS: BP 108/64
== END 2020-07-21 02:22 | disposition home or self-care (01) ==
LOC: ER 18:40
DX: R10.2 Pelvic and perineal pain (principal); R11.2 Nausea with vomiting, unspecified; F17.200 Nicotine dependence, unspecified, uncomplicated; J45.909 Unspecified asthma, uncomplicated; E11.9 Type 2 diabetes mellitus without complications; Z79.84 Long term (current) use of oral hypoglycemic drugs; Z88.6 Allergy status to analgesic agent; Z88.5 Allergy status to narcotic agent; Z88.8 Allergy status to other drugs, medicaments and biological substances
CPT/HCPCS: 36415; 80053; 83690; 84703; 85025; 99283